=== PATIENT | female | born 1970 | race Caucasian/White ===

== ENCOUNTER 2024-02-24 10:27 | Inpatient (IN) | payer BC, MEDICAID, SELFPAY ==
[2024-02-24 10:29] VITALS: BP 184/108; PULSE 93; RESP 19; TEMP 36.8; O2SAT 100
--- NOTE | 2024-02-24 10:35 | ED.C_ITS ---
<Statement entered by Rom Cheema DO - 02/24/24 16:20> This patient was cared for by YURIY Acosta in the emergency department and reviewed and discussed with the attending psychiatrist for admission. Spoke this emergency department protocol I am countersigned this chart. I did not personally see this patient but was present in real-time during the time that this patient was cared for in the emergency department. HPI - Psych 2 General: Chief Complaint: Psychiatric Symptoms Stated Complaint: 96 Time Seen by Provider: 02/24/24 10:31 Source: police Mode of arrival: EMS Limitations: altered mental status History of Present Illness: Patient is a 54-year-old female presents to ED today via police/EMS on a 96-hour hold due to altered mental status and psychosis. She reportedly has been making suicidal and homicidal threats towards family members and children. Upon arrival no history could be obtained from patient given her psychosis. She is displaying bizarre posturing and body movements. She reports she is going to kill us. MD complaint: altered mental status Onset (ago): unknown History of same: Yes Treatments prior to arrival: placed on mental health hold Related Data Home Medications Medication Instructions Recorded Confirmed No Known Home Medications 02/15/23 02/24/24 Allergies Allergy/AdvReac Type Severity Reaction Status Date / Time No Known Allergies Allergy Verified 02/13/24 08:55 Review of Systems 2 General: Reports: ROS unobtainable due to mental status PFSH ED 2 PFSH: Medical History Psychiatric care Physical Exam 2 Const: EXAM LIMITATIONS: altered mental status GENERAL APPEARANCE: d isheveled, appears older than stated age and other (agitated ) Psych: APPEARANCE: Yes unkempt and Yes disheveled ATTITUDE: Yes agitated ACTIVITY/MOTOR BEHAVIOR: Yes disorganized behavior MOOD & AFFECT: Yes irritable THOUGHT PROCESS: disorganized ATTENTION/CONCENTRATION: Yes attention grossly impaired and Yes concentration grossly impaired M JOSELITO/COGNITION: Yes memory grossly impaired and Yes cognition grossly impaired INSIGHT: Poor insight present (Psych) JUDGEMENT: Poor judgement present (Psych) Course 2 Consultations: Consultation #1: Dr. Marie-accepts to NPU Vital Signs: Vital signs: Vital Signs Temperature 98.3 F 02/24/24 10:29 Pulse Rate 73 02/24/24 11:57 Respiratory Rate 19 H 02/24/24 10:29 Blood Pressure 146/95 02/24/24 11:57 Pulse Oximetry 99 02/24/24 11:57 Oxygen Delivery Me thod Room Air 02/24/24 11:57 MDM - Psych Medical Decision Making Patient is on a 96-hour hold upon arrival to the emergency department. She has been cleared medically. Spoke to Dr. Marie who accepts to NPU. Lab Data 02/24/24 10:58 02/24/24 10:58 Laboratory Results WBC 9.86 10^3/uL (3.29-11.43) 02/24/24 10:58 RBC 4.51 10^6/uL (3.85-5.65) 02/24/24 10:58 Hgb 13.60 g/dL (11.27-16.99) 02/24/24 10:58 Hct 40.3 % (36-47) 02/24/24 10:58 MCV 89.4 fl (85-98) 02/24/24 10:58 MCH 30.2 pg (27-33) 02/24/24 10:58 MCHC 33.7 g/dL (30-55) 02/24/24 10:58 RDW 13.0 % (12.1-15.1) 02/24/24 10:58 Plt Count 326 10^3/cmm (157-399) 02/24/24 10:58 MPV 9.6 fL (7.4-10.4) 02/24/24 10:58 Neut % (Auto) 53.7 % 02/24/24 10:58 Lymph % (Auto) 36.1 % 02/24/24 10:58 [place] % (Auto) 6.4 % 02/24/24 10:58 Eos % (Auto) 2.5 % 02/24/24 10:58 Baso % (Auto) 1.0 % 02/24/24 10:58 Neut # (Auto) 5.29 10^3/uL (1.8-7.7) 02/24/24 10:58 Lymph # (Auto) 3.6 10^3/uL (0.8-4.8) 02/24/24 10:58 [place] # (Auto) 0.6 10^3/uL (0.2-0.9) 02/24/24 10:58 Eos # (Auto) 0.3 10^3/uL (0.0-0.8) 02/24/24 10:58 Baso # (Auto) 0.1 10^3/uL (0.0-0.1) 02/24/24 10:58 Nucleated RBC % (auto) 0 % 02/24/24 10:58 Nucleated RBCs # 0.0 /100WBC 02/24/24 10:58 Sodium 140 mmol/L (136-145) 02/24/24 10:58 Potassium 3.8 mmol/L (3.5-5.1) 02/24/24 10:58 Chloride 104 mmol/L (98-107) 02/24/24 10:58 Carbon Dioxide 23 mmol/L (22-29) 02/24/24 10:58 Anion Gap 16.8 (5-19) 02/24/24 10:58 BUN 15 mg/dL (6-20) 02/24/24 10:58 Creatinine 0.9 mg/dL (0.5-0.9) 02/24/24 10:58 GFR Calculation 65.8 mL/min (90-130) L 02/24/24 10:58 Glucose 98 mg/dL (65-115) 02/24/24 10:58 Calculated Osmolality 291 mOsm/kg (285-295) 02/24/24 10:58 Calcium 9.7 mg/dL (8.5-10.5) 02/24/24 10:58 Total Bilirubin 0.5 mg/dL (0.15-1.2) 02/24/24 10:58 AST 15 U/L (0-32) 02/24/24 10:58 ALT 10 U/L (0-33) 02/24/24 10:58 Alkaline Phosphatase 73 U/L (35-105) 02/24/24 10:58 Total Protein 7.4 g/dL (6.6-8.7) 02/24/24 10:58 Albumin 4.4 g/dL (3.5-5.2) 02/24/24 10:58 Globulin 3.0 g/dL (1.3-4.6) 02/24/24 10:58 Salicylates < 0.3 mg/dL (3-10) L 02/24/24 10:58 Urine Opiates Screen Negative ng/mL (Negative) 02/24/24 10:46 Acetaminophen < 5.0 ug/mL (10-30) L 02/24/24 10:58 Ur Barbiturates Screen Negative ng/mL (Negative) 02/24/24 10:46 Ur Phencyclidine Scrn Negative ng/mL (Negative) 02/24/24 10:46 Ur Amphetamines Screen Negative ng/mL (Negative) 02/24/24 10:46 U Benzodiazepines Scrn Negative ng/mL (Negative) 02/24/24 10:46 Urine Cocaine Screen Negative ng/mL (Negative) 02/24/24 10:46 U Marijuana (THC) Screen Positive ng/mL (Negative) H 02/24/24 10:46 Ethyl Alcohol < 10 mg/dL (0-10) 02/24/24 10:58 No radiology studies performed this visit Discharge Plan Discharge Patient Disposition: Admitted As Inpatient Clinical Impression: Acute psychosis, Homicidal ideations, Involuntary commitment Condition: Stable Prescriptions: No Action No Known Home Medications Coding Level of Care Code ED [employer] for [facility] Last
--- NOTE | 2024-02-24 10:50 | PC.PHAR ---
paTIENT UNABLE TO VERIFY ANY PHARMACY OR MRDICATIONS
[2024-02-24] MEDS: haloperidol inj 5 mg/mL INJ 1 mL IM (11:04)
[2024-02-24 11:12] LABS: Basophils # 0.1 10^3/uL (0.0-0.1); Eosinophils # 0.3 10^3/uL (0.0-0.8); Eosinophils % 2.5 %; Hematocrit 40.3 % (36-47); Lymphocytes # 3.6 10^3/uL (0.8-4.8); Lymphocytes % 36.1 %; Mean Corpuscular HGB Conc 33.7 g/dL (30-55); Mean Corpuscular Hemoglobin 30.2 pg (27-33); Mean Corpuscular Volume 89.4 fl (85-98); Mean Platelet Volume 9.6 fL (7.4-10.4); Monocytes # 0.6 10^3/uL (0.2-0.9); Monocytes % 6.4 %; Neutrophils # 5.29 10^3/uL (1.8-7.7); Neutrophils % 53.7 %; Nucleated Red Blood Cells % 0 %; Platelet Count 326 10^3/cmm (157-399); Red Blood Count 4.51 10^6/uL (3.85-5.65); White Blood Count 9.86 10^3/uL (3.29-11.43)
[2024-02-24 11:38] LABS: Alanine Aminotransferase 10 U/L (0-33); Albumin Level 4.4 g/dL (3.5-5.2); Alkaline Phosphatase 73 U/L (35-105); Anion Gap 16.8 (5-19); Aspartate Amino Transferase 15 U/L (0-32); Blood Urea Nitrogen 15 mg/dL (6-20); Calcium 9.7 mg/dL (8.5-10.5); Carbon Dioxide 23 mmol/L (22-29); Chloride 104 mmol/L (98-107); Creatinine Clr Calc Pharmacy 66.2031; Glomerular Filtration Rate 65.8 mL/min (90-130); Glucose 98 mg/dL (65-115); Osmolality Calculated 291 mOsm/kg (285-295); Potassium 3.8 mmol/L (3.5-5.1); Sodium 140 mmol/L (136-145); Total Bilirubin 0.5 mg/dL (0.15-1.2); Total Protein 7.4 g/dL (6.6-8.7)
[2024-02-24 11:44] LABS: Amphetamines Screen Urine Negative (Negative); Barbiturates Screen Urine Negative (Negative); Benzodiazepines Screen Urine Negative (Negative); Cocaine Screen Urine Negative (Negative); Opiate Screen Urine Negative (Negative); PCP Screen Urine Negative (Negative); THC Screen Urine Positive (Negative)
[2024-02-24 11:45] LABS: Acetaminophen < 5.0 ug/mL (10-30); Alcohol Level < 10 mg/dL (0-10); Salicylate < 0.3 mg/dL (3-10)
[2024-02-24 11:57] VITALS: BP 146/95; PULSE 73; O2SAT 99
[2024-02-24 11:58] VITALS: BP 176/103; PULSE 72; RESP 19; TEMP 36.8; O2SAT 100
[2024-02-24 13:25] VITALS: BP 134/76; PULSE 80; O2SAT 98
[2024-02-24 14:00] VITALS: BP 151/108; PULSE 71; RESP 18; TEMP 37.1; O2SAT 98
--- NOTE | 2024-02-24 15:04 | PC.NURSE ---
ADMIT NOTE PT WAS BROUGHT THE THE EMERGENCY DEPARTMENT AFTER BEING PLACED ON A 96 HOUR HOLD BY [facility]. PT IS REPORTED TO HAVE BEEN HOLDING HER YOUNG GRANDSON AND STATED SOMETHING TO THE EFFECTS OF I COULD KILL YOU RIGHT NOW. PT IS REPORTED TO HAVE MADE THREATS TO SON AND DAUGHTER IN LAW'S LIVES WELL. PT'S SON REPORTS TO [facility] STAFF THAT PT HAS BEEN TALKING TO HERSELF AND LEAVING AT NIGHT AND SOMETIMES COMING HOME WITH BLOOD ON HER WITHOUT WOUNDS HERSELF. UPON ADMIT TO THE NPU PT IS COOPERATIVE. PT IS NOT ORIENTED TO SITUATION AND IS UNSURE OF TIME HOWEVER CAN MANAGE TO FIND THE CORRECT RESPONSE AFTER A FEW ATTEMPTS. PT APPEARS TO BE RESPONDING TO INTERNAL STIMULI BUT DENIES HALLUCINATIONS. WHEN ASKED IF PT HAD A GUARDIAN PT STATED TO THIS NURSE YOU ARE MY GUARDIAN THIS NURSE REORIENTED PT AND PT WAS ABLE TO GIVE RESPONSE THAT SHE DOES NOT HAVE A LEGAL GUARDIAN. PT ALSO APPEARS TO BE DELUSIONAL. PT STATED THAT SHE WAS COLD HOWEVER, WHEN ANOTHER PERSON WAS DRINKING IT MADE HER WARM AGAIN. PT WAS COOPERATIVE WITH ASSESSMENT. PT CURRENT NEEDS ARE MET AT THIS TIME.
[2024-02-24 20:31] VITALS: BP 157/91; PULSE 86; RESP 15; TEMP 37.1; O2SAT 99
[2024-02-25 05:50] VITALS: BP 143/81; PULSE 88; RESP 15; TEMP 36.8; O2SAT 99
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
[2024-02-25 14:00] VITALS: BP 154/114; PULSE 74; RESP 16; TEMP 36.9; O2SAT 99
[2024-02-25 20:20] VITALS: BP 164/113; PULSE 101; RESP 18; TEMP 36.9; O2SAT 98
[2024-02-25 21:34] VITALS: BP 160/127
[2024-02-25] MEDS: amlodipine 5 mg Tablet PO (21:49)
[2024-02-26] VITALS (7 sets, daily range): BP systolic 135–175; BP diastolic 93–118; PULSE 81–89; RESP 16–18; TEMP 36.6–36.7; O2SAT 98–100
[2024-02-26] MEDS: amlodipine 10 mg Tablet PO (09:40)
[2024-02-26] MEDS: cloNIDine 0.1 mg Tablet 0.2 MG PO (14:03)
[2024-02-26] MEDS: nicotine 4 mg lozenge MUCOUS MEM ×3 (14:03→19:37)
--- NOTE | 2024-02-26 15:12 | PC.NURSE ---
PT BLOOD PRESSURE WAS 175/109. THIS NURSE SPOKE WITH PHYSICIAN WHO ORDERED TO GIVE 0.2MG CLONIDINE A ONE TIME DOSE. THIS NURSE PLACED ORDER AND ADMINISTERED MEDICATION AT 1349. THIS NURSE RE-ASSESSED PT BLOOD PRESSURE AT 1510 AND RECEIVED A READING OF 166/118. THIS NURSE NOTIFIED PHYSICIAN OF NEW ELEVATED BLOOD PRESSURE RESULTS AND PHYSICIAN TO CALL IN A MED CONSULT. PT STATED TO THIS NURSE DURING RE-ASSESSMENT MY HEART BEATS WITH YOURS WHEN YOU ARE AROUND SO THAT IS PROBABLY WHY IT IS LIKE THAT. PT OTHER NEEDS ARE MET AT THIS TIME.
--- NOTE | 2024-02-26 17:15 | P.CONIM_ITS ---
Providers/Reason For Consult 2 Consulting Physician/Specialty*: Hospitalist Reason for Consult*: Hypertension Attending Physician: Rivera Marie MD History of Present Illness History of Present Illness Maribell Epps is a 54 year old female who was admitted through the emergency department due to acute psychosis and homicidal ideations. She has a history of drug abuse with cocaine and marijuana. The patient has been in the Neuropsych Unit and being treated for acute psychosis. While in the NPU, her blood pressure has been elevated and gotten as high as 175/109. She was started on amlodipine and is currently on 10 mg daily. She was also given a one-time dose of clonidine 0.2 mg which has not helped sufficiently. Because of this the medicine team was consulted for further evaluation. The patient denies any history of hypertension, however does note that sometimes she has a pounding headache and will get nauseous with this and be able to feel her pulse in her neck and be able to see the pulsations with her eyes. Review of Systems 2 Narrative: General: Denies fevers, chills, fatigue, malaise. Ears/Nose/Throat: Denies nasal congestion, sore throat. Cardiovascular: Denies chest pains, peripheral edema. Respiratory: Denies cough, wheezing. Gastrointestinal: Denies diarrhea, constipation, abdominal pain. Skin: Denies rash. Medications/Allergies Home Medications Medication Instructions Recorded Confirmed Last Taken Type No Known Home Medications 02/15/23 02/24/24 Unknown History Allergies Allergy/AdvReac Type Severity Reaction Status Date / Time No Known Allergies Allergy Verified 02/13/24 08:55 Current Medications Generic Name Dose Route Start Last Admin Trade Name Freq PRN Reason Stop Dose Admin Amlodipine Besylate 10 mg 02/26/24 09:00 02/26/24 09:40 Amlodipine 10 Mg Tablet PO 10 mg DAILY JYOTI Administration Nicotine Polacrilex 4 mg 02/26/24 13:37 02/26/24 16:58 Nicotine 4 Mg Lozenge MUCOUS MEM 4 mg Q2H PRN Administration NICOTINE CRAVINGS PFSH Acute 2 PFSH: Medical History Psychiatric care Vitals/I&O/Wt Last Vital Signs Temp 98.1 F 02/26/24 13:56 Pulse 81 02/26/24 13:56 Resp 18 02/26/24 13:56 BP 166/118 02/26/24 15:12 Pulse Ox 99 02/26/24 13:56 O2 Del Method Room Air 02/26/24 06:00 Weight last 48 hrs Weight 108 lb 6 oz Physical Exam 2 Narrative: General: Alert and oriented x 3. In no acute distress. Eyes: PERRLA, EOM intact, no discharge. Mouth: No erythema or tonsilar enlargement. No masses noted. Neck: No thyromegaly. No lymphadenopathy. Heart: Regular rate and rhythm. No murmurs. Lungs: Clear to auscultation bilaterally. No wheezes, crackles or ronchi. Extremities: No pitting edema. Psych: Pleasant, interactive. Data 02/24/24 10:58 02/24/24 10:58 A&P Assessment and plan (1) Hypertension: The patient's blood pressure is currently 166/118. She is currently on amlodipine 10 mg daily. Clonidine 0.2 mg did not seem to help bring her blood pressure down sufficiently. We will start her on losartan 25 mg once daily and write a prescription for hydralazine to be used on an as-needed basis. The dose of losartan may need to be increased depending on her course. We appreciate the consultation. (2) Acute psychosis: Further recommendations and treatment for acute psychosis will be managed by the psychiatric team. (3) Cannabis use disorder: (4) Homicidal ideations: Coding Level of Care Code Acute Code for [facility] Diagnoses Hypertension I10 Acute psychosis F23 Cannabis use disorder F12.90 Homicidal ideations R45.850
--- NOTE | 2024-02-26 19:35 | P.NPUPN_ITS ---
Subjective NPU 2 Subjective: Patient is a 54-year-old female admitted with psychosis and alleged homicidal ideation currently involuntarily placed on the neuropsychiatric unit. He had stated that she had not made any threats to hurting her family. She stated that she had used marijuana that may have been contaminated with another substance. She had reported that her family had felt threatened by her and reported that she had in the past been attempting to get some help here in [place] with outpatient services. She had in the past described having been influenced by specific thoughts and beliefs with reports of past paranoia. She had endorsed no auditory or visual hallucinations today. She had reported that she had been more confused. She reported that her homelessness recently had been brief. She states that her mother and her son had been concerned about her but was not able to elaborate further. Mental Status Exam 2 MSE Comments: This is an underweight white female looking older than her stated age in hospital scrubs with limited grooming and eye contact.? No abnormal movements except for psychomotor retardation.? She was cooperative with exam in mild to moderate distress.? Speech was decreased in rate and normal in volume. Mood described as better. Her affect was incongruent and subdued. Thought process linear, thought content: Patient denied suicidal or homicidal ideation, there were no delusions reported or noted, she denied auditory or visual hallucinations. ?There was an overall poverty of content and some paranoia present. Attention and concentration were intact and memory appeared mostly reliable, but none were formally tested.? She is alert and oriented x person and place.? Insight and judgment limited, impulse control is limited versus impaired.? Vitals/I&O/Wt Last Vital Signs Temp 98.1 F 02/26/24 13:56 Pulse 81 02/26/24 13:56 Resp 18 02/26/24 13:56 BP 166/118 02/26/24 15:12 Pulse Ox 99 02/26/24 13:56 O2 Del Method Room Air 02/26/24 06:00 Weight last 48 hrs Weight 49.158 kg Data NPU 02/24/24 10:58 02/24/24 10:58 A&P Assessment and plan (1) Hypertension: (2) Acute psychosis: Further recommendations and treatment for acute psychosis will be managed by the psychiatric team. (3) Cannabis use disorder: (4) Homicidal ideations: (5) Involuntary commitment: Plan This is a 54-year-old white female denying any mental health history history but reporting some past addiction and some current cannabis use who presented on a 96-hour hold. The patient presented with increased anxiety and anger following the use of pre-rolled joints. The patient's family reported a change in behavior, including yelling and threats, which led to hospitalization. The patient has a history of tobacco and cannabis use and past cocaine use. 1. Trial of zyprexa 5mg at night. 2. Continue every 15 minute checks for safety. 3. Encourage individual, group and milieu therapies. 4. Obtain collateral information. 5. Encourage sober living treatment after discharge at the highest level of care to which he is willing to commit. 6. Evaluate safety against the backdrop of the 96-hour hold. Involuntary Hold Information 2 96 Hour Hold: 96 Hour Involuntary Admission: Yes 96 Hour Hold Ending Date: 03/01/24 96 Hour Hold Ending Time: 11:50 Attestations NPU 2 Medical Necessity Statement*: Inpatient hospitalization is medically necessary and the clinically appropriate intervention at this time. We will monitor medications and make changes as indicated. Patient will be in the hospital for over two midnights. The patient's likely length of stay is 3-5 days. Coding Level of Care Code Acute Code for [facility] Fwd Diagnoses Hypertension I10 Acute psychosis F23 Cannabis use disorder F12.90 Homicidal ideations R45.850 Involuntary commitment Z04.6
[2024-02-26] MEDS: losartan 50 mg Tablet 25 MG PO (20:18)
[2024-02-26] MEDS: OLANZapine 5 mg TABLET PO (20:19)
[2024-02-27] VITALS (8 sets, daily range): BP systolic 119–163; BP diastolic 79–109; PULSE 71–109; RESP 16–18; TEMP 36.4–36.8; O2SAT 96–100
[2024-02-27] MEDS: nicotine 4 mg lozenge MUCOUS MEM ×7 (05:59→20:06)
[2024-02-27] MEDS: amlodipine 10 mg Tablet PO (08:22)
[2024-02-27] MEDS: losartan 50 mg Tablet 25 MG PO ×2 (08:22→20:06)
[2024-02-27 09:47] LABS: Albumin Level 4.6 g/dL (3.5-5.2); Alkaline Phosphatase 72 U/L (35-105); Blood Urea Nitrogen 19 mg/dL (6-20); Calcium 9.7 mg/dL (8.5-10.5); Carbon Dioxide 26 mmol/L (22-29); Chloride 105 mmol/L (98-107); Cortisol Random 13.66 ug/dL (2.47-19.5); Creatinine Clr Calc Pharmacy 72.9567; Glomerular Filtration Rate 87.9 mL/min (90-130); Glucose 90 mg/dL (65-115); Osmolality Calculated 292 mOsm/kg (285-295); Sodium 140 mmol/L (136-145); Total Bilirubin 0.4 mg/dL (0.15-1.2); Total Protein 7.6 g/dL (6.6-8.7)
[2024-02-27 10:01] LABS: Alanine Aminotransferase 8 U/L (0-33); Aspartate Amino Transferase 18 U/L (0-32)
--- NOTE | 2024-02-27 13:20 | P.PN_ITS ---
Subjective 2 Subjective: No acute overnight events noted. She is still hypertensive with systolic blood pressure in high 140s to 150s. Medications: Reviewed: Yes Vitals/I&O/Wt Last Vital Signs Temp 97.9 F 02/27/24 11:59 Pulse 77 02/27/24 11:59 Resp 18 02/27/24 11:59 BP 161/105 02/27/24 11:59 Pulse Ox 96 02/27/24 11:59 O2 Del Method Room Air 02/27/24 03:58 Weight last 48 hrs Weight 49.158 kg Physical Exam 2 Narrative: General: Alert and oriented x 3. In no acute distress. Eyes: PERRLA, EOM intact, no discharge. Mouth: No erythema or tonsilar enlargement. No masses noted. Neck: No thyromegaly. No lymphadenopathy. Heart: Regular rate and rhythm. No murmurs. Lungs: Clear to auscultation bilaterally. No wheezes, crackles or ronchi. Extremities: No pitting edema. Psych: Pleasant, interactive. Data 02/24/24 10:58 02/27/24 08:36 A&P Assessment and plan (1) Hypertension: The patient's blood pressure is currently 161/105. She is currently on amlodipine 10 mg daily. Will do losartan 25 mg at bedtime P.o. hydralazine 25 mg twice daily Will monitor for now (2) Acute psychosis: Further recommendations and treatment for acute psychosis will be managed by the psychiatric team. (3) Cannabis use disorder: (4) Homicidal ideations: Attestations 2 Medical Necessity Statement*: She is needing continued hospitalization for management of psychiatric disorder and also being managed by medical team for uncontrolled hypertension Time Spent in Patient Care: 10 minutes Coding Level of Care Code Acute Code for [facility] Fwd Diagnoses Hypertension I10 Acute psychosis F23 Cannabis use disorder F12.90 Homicidal ideations R45.850 Time Spent (min) 10
[2024-02-27 14:57] LABS: Basophils # 0.1 10^3/uL (0.0-0.1); Eosinophils # 0.4 10^3/uL (0.0-0.8); Eosinophils % 2.7 %; Hematocrit 40.4 % (36-47); Lymphocytes # 3.9 10^3/uL (0.8-4.8); Lymphocytes % 28.6 %; Mean Corpuscular HGB Conc 33.7 g/dL (30-55); Mean Corpuscular Hemoglobin 30.8 pg (27-33); Mean Corpuscular Volume 91.6 fl (85-98); Mean Platelet Volume 9.7 fL (7.4-10.4); Monocytes # 0.7 10^3/uL (0.2-0.9); Monocytes % 5.1 %; Neutrophils # 8.47 10^3/uL (1.8-7.7); Neutrophils % 62.2 %; Nucleated Red Blood Cells % 0 %; Platelet Count 308 10^3/cmm (157-399); Red Blood Count 4.41 10^6/uL (3.85-5.65); Red Cell Distribution Width 12.9 % (12.1-15.1)
[2024-02-27] MEDS: hyDRALAzine 25 mg Tablet PO (17:40)
--- NOTE | 2024-02-27 18:51 | P.NPUPN_ITS ---
Subjective NPU 2 Subjective: Patient is a 54-year-old female admitted with psychosis and alleged homicidal ideation currently involuntarily placed on the neuropsychiatric unit. She reports that she often could hear God inside her head. She had stated that she felt at times influenced and stated that she had had the special abilities for several years. She had stated that she had periods of time where she had not slept for several days and had felt that her thoughts were moving fast. She reported feeling at times that others were trying to put specific beliefs inside of her. She had acknowledged having her different voices and stated that this was not related in the past to the use of substances although she had stated that she may have had her marijuana spiked with a hallucinogen. Patient reports hearing the voice and hearing the heartbeat of god. Mental Status Exam 2 MSE Comments: This is an underweight white female looking older than her stated age in hospital scrubs with limited grooming and eye contact.? No abnormal movements except for psychomotor retardation.? She was cooperative with exam in mild to moderate distress.? Speech was more productive in speech and normal in rate. Mood described as great. Her affect was euphoric. Thought process linear, thought content: Patient denied suicidal or homicidal ideation, there was evidence of grandiosity, ideas of special abilities and infinite insight. Attention and concentration were intact and memory appeared mostly reliable, but none were formally tested.? She is alert and oriented x person and place.? Insight and judgment limited, impulse control is limited versus impaired.? Vitals/I&O/Wt Last Vital Signs Temp 98.3 F 02/27/24 16:00 Pulse 81 02/27/24 16:00 Resp 18 02/27/24 16:00 BP 163/109 02/27/24 16:00 Pulse Ox 100 02/27/24 16:00 O2 Del Method Room Air 02/27/24 16:00 Weight last 48 hrs Weight 49.158 kg Data NPU 02/27/24 14:50 02/27/24 08:36 A&P Assessment and plan (1) Acute psychosis: (2) Hypertension: (3) Cannabis use disorder: (4) Homicidal ideations: (5) Involuntary commitment: Plan This is a 54-year-old white female denying any mental health history history but reporting some past addiction and some current cannabis use who presented on a 96-hour hold. The patient presented with increased anxiety and anger following the use of pre-rolled joints. The patient's family reported a change in behavior, including yelling and threats, which led to hospitalization. The patient has a history of tobacco and cannabis use and past cocaine use. 1. Increase zyprexa to 10mg at night. 2. Continue every 15 minute checks for safety. 3. Encourage individual, group and milieu therapies. 4. Obtain collateral information. 5. Encourage sober living treatment after discharge at the highest level of care to which he is willing to commit. 6. Evaluate safety against the backdrop of the 96-hour hold. Involuntary Hold Information 2 96 Hour Hold: 96 Hour Involuntary Admission: Yes 96 Hour Hold Ending Date: 03/01/24 96 Hour Hold Ending Time: 11:50 Attestations NPU 2 Medical Necessity Statement*: Inpatient hospitalization is medically necessary and the clinically appropriate intervention at this time. We will monitor medications and make changes as indicated. Patient will be in the hospital for over two midnights. The patient's likely length of stay is 3-5 days. Coding Level of Care Code Acute Code for [facility] Fwd Diagnoses Acute psychosis F23 Hypertension I10 Cannabis use disorder F12.90 Homicidal ideations R45.850 Involuntary commitment Z04.6
[2024-02-27] MEDS: trazodone 50 mg Tablet PO (20:06)
[2024-02-27] MEDS: OLANZapine 5 mg TABLET 10 MG PO (20:06)
[2024-02-28] VITALS (8 sets, daily range): BP systolic 94–156; BP diastolic 64–111; PULSE 65–98; RESP 16–20; TEMP 36.6–37.2; O2SAT 98–100
[2024-02-28] MEDS: nicotine 4 mg lozenge MUCOUS MEM ×7 (07:24→20:48)
[2024-02-28] MEDS: hyDRALAzine 25 mg Tablet PO (08:52)
[2024-02-28] MEDS: amlodipine 10 mg Tablet PO (08:52)
--- NOTE | 2024-02-28 17:27 | P.NPUPN_ITS ---
Subjective NPU 2 Subjective: Patient is a 54-year-old female admitted with psychosis and alleged homicidal ideation currently involuntarily placed on the neuropsychiatric unit. The patient had reported some difficulties with falling asleep. She had continued to express unusual thoughts and reported that she had some special insight and ideas regarding God. She had been more pleasant on the unit. She was redirectable. She had described the mortgage loan underwriter of this note is being blast and reported hearing God's voice through the vibration of the air. She had minimized any depression. She had reported that she had spoken with family members but was unable to elaborate in any way what the discussion was about. She was unable to describe the details of what had brought her into the hospital. She had admitted that she had been having some disturbance in sleep at the time. Mental Status Exam 2 MSE Comments: This is an underweight white female looking older than her stated age in hospital scrubs with limited grooming and eye contact.? No abnormal involuntary motor movements today. She did appear to be pacing her room. She was cooperative with exam in mild distress.? Speech was more productive in speech and normal in rate. Mood described as great. Her affect was euphoric and expansive. Thought process linear, thought content: Patient denied suicidal or homicidal ideation, there was evidence of grandiosity, ideas of special abilities and infinite insight. Attention and concentration were intact and memory appeared mostly reliable, but none were formally tested.? She is alert and oriented x person and place.? Insight and judgment limited, impulse control is limited versus impaired.? Vitals/I&O/Wt Last Vital Signs Temp 99 F 02/28/24 16:00 Pulse 94 02/28/24 16:00 Resp 18 02/28/24 16:00 BP 138/98 02/28/24 16:00 Pulse Ox 100 02/28/24 16:00 O2 Del Method Room Air 02/27/24 16:00 Data NPU 02/27/24 14:50 02/27/24 08:36 A&P Assessment and plan (1) Acute psychosis: (2) Bipolar affective, manic, unspec: (3) Hypertension: (4) Cannabis use disorder: (5) Homicidal ideations: (6) Involuntary commitment: Plan This is a 54-year-old white female denying any mental health history history but reporting some past addiction and some current cannabis use who presented on a 96-hour hold. The patient presented with increased anxiety and anger following the use of pre-rolled joints. The patient's family reported a change in behavior, including yelling and threats, which led to hospitalization. The patient has a history of tobacco and cannabis use and past cocaine use. 1. Increase zyprexa to 15mg at night. 2. Continue every 15 minute checks for safety. 3. Encourage individual, group and milieu therapies. 4. Obtain collateral information. 5. Encourage sober living treatment after discharge at the highest level of care to which he is willing to commit. 6. Evaluate safety against the backdrop of the 96-hour hold. Involuntary Hold Information 2 96 Hour Hold: 96 Hour Involuntary Admission: Yes 96 Hour Hold Ending Date: 03/01/24 96 Hour Hold Ending Time: 11:50 Attestations NPU 2 Medical Necessity Statement*: Inpatient hospitalization is medically necessary and the clinically appropriate intervention at this time. We will monitor medications and make changes as indicated. The patient's likely length of stay is 3-5 days. Coding Level of Care Code Acute Code for [facility] Fwd Diagnoses Acute psychosis F23 Bipolar affective, manic, unspec F31.10 Hypertension I10 Cannabis use disorder F12.90 Homicidal ideations R45.850 Involuntary commitment Z04.6
[2024-02-28] MEDS: OLANZapine 5 mg TABLET 15 MG PO (20:47)
[2024-02-28] MEDS: losartan 50 mg Tablet 25 MG PO (20:47)
[2024-02-29 04:00] VITALS: BP 114/74; PULSE 89; RESP 16; TEMP 36.7; O2SAT 100
[2024-02-29] MEDS: nicotine 4 mg lozenge MUCOUS MEM ×7 (05:30→20:42)
[2024-02-29 07:45] VITALS: BP 141/94; PULSE 68; RESP 18; TEMP 36.4; O2SAT 97
[2024-02-29] MEDS: amlodipine 10 mg Tablet PO (08:42)
[2024-02-29] MEDS: hyDRALAzine 25 mg Tablet PO (08:42)
[2024-02-29 11:54] VITALS: BP 126/92; PULSE 112; RESP 18; TEMP 37.2; O2SAT 100
[2024-02-29 16:00] VITALS: BP 133/84; PULSE 92; RESP 18; TEMP 36.6; O2SAT 100
--- NOTE | 2024-02-29 17:19 | P.NPUPN_ITS ---
Subjective NPU 2 Subjective: Patient is a 54-year-old female admitted with psychosis and alleged homicidal ideation currently involuntarily placed on the neuropsychiatric unit. Patient did not endorse any suicidal or homicidal ideation. She was redirectable on the unit. She continued to have odd ideas and appeared preoccupied by hearing God through the air and around her. She stated that she felt that a book that was given to her by another patient was purple and the purple writing somehow was a direct signal for her. She had stated that she had spoken with family members and reported that she was hopeful to return home. She had reported some improved sleep. She reports that she could see the mortgage underwriter's heartbeat. Mental Status Exam 2 MSE Comments: This is an underweight white female looking older than her stated age in hospital scrubs with limited grooming and eye contact.? No abnormal involuntary motor movements today. She did appear to be pacing her room again. She was cooperative with exam in mild distress.? Speech was more productive in speech and normal in rate. Mood described as great. Her affect was euphoric and expansive. Thought process linear, thought content: Patient denied suicidal or homicidal ideation, there was evidence of grandiosity, ideas of special abilities and infinite insight and odd ideas of reference. Attention and concentration were intact and memory appeared mostly reliable, but none were formally tested.? She is alert and oriented x person and place.? Insight and judgment limited, impulse control is limited versus impaired.? Vitals/I&O/Wt Last Vital Signs Temp 98 F 02/29/24 16:00 Pulse 92 02/29/24 16:00 Resp 18 02/29/24 16:00 BP 133/84 02/29/24 16:00 Pulse Ox 100 02/29/24 16:00 O2 Del Method Room Air 02/27/24 16:00 Data NPU 02/27/24 14:50 02/27/24 08:36 A&P Assessment and plan (1) Acute psychosis: (2) Bipolar affective, manic, unspec: (3) Hypertension: (4) Cannabis use disorder: (5) Homicidal ideations: (6) Involuntary commitment: Plan This is a 54-year-old white female denying any mental health history history but reporting some past addiction and some current cannabis use who presented on a 96-hour hold. The patient presented with increased anxiety and anger following the use of pre-rolled joints. The patient's family reported a change in behavior, including yelling and threats, which led to hospitalization. The patient has a history of tobacco and cannabis use and past cocaine use. 1. Continue zyprexa at 15mg at night. Improvement noted but still ideas of reference and unusual beliefs and perceptions suggest continued psychosis. 2. Continue every 15 minute checks for safety. 3. Encourage individual, group and milieu therapies. 4. Obtain collateral information. 5. Encourage sober living treatment after discharge at the highest level of care to which he is willing to commit. 6. Evaluate safety against the backdrop of the 96-hour hold. Involuntary Hold Information 2 96 Hour Hold: 96 Hour Involuntary Admission: Yes 96 Hour Hold Ending Date: 03/01/24 96 Hour Hold Ending Time: 11:50 Attestations NPU 2 Medical Necessity Statement*: Inpatient hospitalization is medically necessary and the clinically appropriate intervention at this time. We will monitor medications and make changes as indicated. The patient's likely length of stay is 3-5 days. Coding Level of Care Code Acute Code for [facility] Fwd Diagnoses Acute psychosis F23 Bipolar affective, manic, unspec F31.10 Hypertension I10 Cannabis use disorder F12.90 Homicidal ideations R45.850 Involuntary commitment Z04.6
[2024-02-29 20:00] VITALS: BP 120/91; PULSE 100; RESP 18; TEMP 36.8; O2SAT 93
[2024-02-29 20:40] VITALS: BP 120/91
[2024-02-29] MEDS: OLANZapine 5 mg TABLET 15 MG PO (20:40)
[2024-02-29] MEDS: losartan 50 mg Tablet 25 MG PO (20:40)
[2024-02-29] MEDS: trazodone 50 mg Tablet PO (20:40)
[2024-03-01] VITALS (7 sets, daily range): BP systolic 91–136; BP diastolic 62–96; PULSE 88–118; RESP 15–20; TEMP 36.5–37.2; O2SAT 97–100
[2024-03-01] MEDS: nicotine 4 mg lozenge MUCOUS MEM ×6 (05:19→20:27)
[2024-03-01] MEDS: hyDRALAzine 25 mg Tablet PO (08:22)
[2024-03-01] MEDS: amlodipine 10 mg Tablet PO (08:22)
--- NOTE | 2024-03-01 17:31 | P.NPUPN_ITS ---
Subjective NPU 2 Subjective: Patient is a 54-year-old female admitted with psychosis and alleged homicidal ideation currently involuntarily placed on the neuropsychiatric unit. The patient continued to engage in conversations with herself alone in her room. She had reported that her heart and other staff members hearts were somehow intimately connected. There was no episodes of agitation. She had engaged in appropriate self-care. She had been redirectable. Patient had not made any overt threats towards herself or others. She had again reported that she had felt that everything was wonderful here . She had slept throughout the night and remained compliant with her medicine at this time. She had described sql report writer as a god. Mental Status Exam 2 MSE Comments: This is an underweight white female looking older than her stated age in hospital scrubs with limited grooming and eye contact.? No abnormal involuntary motor movements today. She was cooperative with exam in mild distress.? Speech was more productive in speech and normal in rate. Mood described as wonderful. Her affect was excessively euphoric. Thought process was linear. Thought content: Patient denied suicidal or homicidal ideation, there was evidence of grandiosity, ideas of special abilities and infinite insight and odd ideas of reference. Attention and concentration were intact and memory appeared mostly reliable, but none were formally tested.? She is alert and oriented x person and place.? Insight and judgment limited, impulse control is limited versus impaired.? Vitals/I&O/Wt Last Vital Signs Temp 98.8 F 03/01/24 15:26 Pulse 112 H 03/01/24 15:26 Resp 18 03/01/24 15:26 BP 118/79 03/01/24 15:26 Pulse Ox 100 03/01/24 15:26 O2 Del Method Room Air 02/27/24 16:00 Data NPU 02/27/24 14:50 02/27/24 08:36 A&P Assessment and plan (1) Acute psychosis: (2) Bipolar affective, manic, unspec: (3) Hypertension: (4) Cannabis use disorder: (5) Homicidal ideations: (6) Involuntary commitment: Plan This is a 54-year-old white female denying any mental health history history but reporting some past addiction and some current cannabis use who presented on a 96-hour hold. The patient presented with increased anxiety and anger following the use of pre-rolled joints. The patient's family reported a change in behavior, including yelling and threats, which led to hospitalization. The patient has a history of tobacco and cannabis use and past cocaine use. 1. Continue zyprexa at 15mg at night. Improvement noted but still ideas of reference and unusual beliefs and perceptions suggest continued psychosis. 2. Continue every 15 minute checks for safety. 3. Encourage individual, group and milieu therapies. 4. Obtain collateral information. 5. Encourage sober living treatment after discharge at the highest level of care to which he is willing to commit. 6. Court hearing filed for 21 day hold. Involuntary Hold Information 2 96 Hour Hold: 96 Hour Involuntary Admission: Yes 96 Hour Hold Ending Date: 03/01/24 96 Hour Hold Ending Time: 11:50 Attestations NPU 2 Medical Necessity Statement*: Inpatient hospitalization is medically necessary and the clinically appropriate intervention at this time. We will monitor medications and make changes as indicated. The patient's likely length of stay is 3-5 days. Coding Level of Care Code Acute Code for [facility] Diagnoses Acute psychosis F23 Bipolar affective, manic, unspec F31.10 Hypertension I10 Cannabis use disorder F12.90 Homicidal ideations R45.850 Involuntary commitment Z04.6
[2024-03-01 17:53] LABS: Bilirubin Urine Negative (Negative); Blood Urine Negative (Negative); Glucose Urine UA Negative (Normal); Ketones Urine Negative (Negative); Leukocyte Esterase Urine Negative (Negative); Nitrate Urine Negative (Negative); Protein Urine Negative (Negative); Specific Gravity, Urine 1.007 (1.005-1.030); Urine Appearance Clear (CLEAR); Urine Color Yellow (Yellow); Urobilinogen Urine 0.2 mg/dL (Negative)
[2024-03-01 17:58] LABS: Add Urine Microscopic? YES; Bacteria Urine None Seen /hpf; Hyaline Casts Urine 0-4 /lpf; RBC Urine 0-2 /hpf (0-2); Squamous Epithelial Cell Urine 0-5 /hpf (0-5); WBC Urine 0-5 /hpf (0-5)
[2024-03-01] MEDS: OLANZapine 5 mg TABLET 15 MG PO (20:15)
[2024-03-01] MEDS: losartan 50 mg Tablet 25 MG PO (20:16)
[2024-03-01] MEDS: trazodone 50 mg Tablet PO (20:26)
[2024-03-02] VITALS (7 sets, daily range): BP systolic 113–148; BP diastolic 70–89; PULSE 80–110; RESP 15–16; TEMP 36.4–36.9; O2SAT 96–100
[2024-03-02] MEDS: nicotine 4 mg lozenge MUCOUS MEM ×6 (05:18→20:32)
--- NOTE | 2024-03-02 08:12 | PC.NURSE ---
Patient responding to internal stimuli, appearing to be interacting with someone/something that is not there. When this RN was doing her assessment she stated that her room being cold was keeping her holy. Patient very positive and friendly this morning.
[2024-03-02] MEDS: amlodipine 10 mg Tablet PO (08:44)
[2024-03-02] MEDS: hyDRALAzine 25 mg Tablet PO (08:44)
--- NOTE | 2024-03-02 13:30 | P.NPUPN_ITS ---
Subjective NPU 2 Subjective: Patient is a 54-year-old female admitted with psychosis and alleged homicidal ideation currently involuntarily placed on the neuropsychiatric unit. The patient had continued to appear grandiose and continue to appear compliant on the unit stating that God was somehow guiding her and stated to several different staff members that they were God's. She had remained compliant with her medications. She had been agreeable to continuing to stay on a 21-day hold. She had minimized any side effects from her medication regimen. There was no acts of aggression noted here. She had reported improved sleep. She had not required any as needed medications on the unit yet over the last 24 hours. Mental Status Exam 2 MSE Comments: This is an underweight white female looking older than her stated age in hospital scrubs with limited grooming and eye contact.? No abnormal involuntary motor movements today. She was cooperative with exam in mild distress.? Speech was more productive in speech and normal in rate. Mood described as great . Her affect was excessively euphoric. Thought process was linear but expansive. Thought content: Patient denied suicidal or homicidal ideation, there was evidence of grandiosity, ideas of special abilities and infinite abilities and odd ideas of reference. Attention and concentration were intact and memory appeared mostly reliable, but none were formally tested.? She is alert and oriented x person and place.? Insight and judgment limited, impulse control is limited versus impaired.? Vitals/I&O/Wt Last Vital Signs Temp 98.2 F 03/02/24 11:46 Pulse 110 H 03/02/24 11:46 Resp 16 03/02/24 11:46 BP 119/78 03/02/24 11:46 Pulse Ox 96 03/02/24 11:46 O2 Del Method Room Air 03/02/24 11:46 Data NPU 02/27/24 14:50 02/27/24 08:36 A&P Assessment and plan (1) Acute psychosis: (2) Bipolar affective, manic, unspec: (3) Hypertension: (4) Cannabis use disorder: (5) Homicidal ideations: (6) Involuntary commitment: Plan This is a 54-year-old white female denying any mental health history history but reporting some past addiction and some current cannabis use who presented on a 96-hour hold. The patient presented with increased anxiety and anger following the use of pre-rolled joints. The patient's family reported a change in behavior, including yelling and threats, which led to hospitalization. The patient has a history of tobacco and cannabis use and past cocaine use. 1. Continue zyprexa at 15mg at night. Improvement noted but still ideas of reference and unusual beliefs and perceptions suggest continued psychosis. Monitor daily weights. 2. Continue every 15 minute checks for safety. 3. Encourage individual, group and milieu therapies. 4. Obtain collateral information. 5. Encourage sober living treatment after discharge at the highest level of care to which he is willing to commit. 6. Court hearing filed for 21 day hold. Involuntary Hold Information 2 96 Hour Hold: 96 Hour Involuntary Admission: Yes 96 Hour Hold Ending Date: 03/01/24 96 Hour Hold Ending Time: 11:50 Attestations NPU 2 Medical Necessity Statement*: Inpatient hospitalization is medically necessary and the clinically appropriate intervention at this time. We will monitor medications and make changes as indicated. The patient's likely length of stay is 5-7 days. Coding Level of Care Code Acute Code for [facility] Diagnoses Acute psychosis F23 Bipolar affective, manic, unspec F31.10 Hypertension I10 Cannabis use disorder F12.90 Homicidal ideations R45.850 Involuntary commitment Z04.6
[2024-03-02] MEDS: OLANZapine 5 mg TABLET 15 MG PO (20:20)
[2024-03-02] MEDS: losartan 50 mg Tablet 25 MG PO (20:20)
[2024-03-02] MEDS: trazodone 50 mg Tablet PO (20:21)
[2024-03-03] VITALS (7 sets, daily range): BP systolic 104–144; BP diastolic 72–91; PULSE 76–110; RESP 15–20; TEMP 36.6–36.9; O2SAT 94–100
[2024-03-03] MEDS: nicotine 4 mg lozenge MUCOUS MEM ×6 (06:03→20:46)
[2024-03-03] MEDS: acetaminophen 325 mg Tablet 650 MG PO ×2 (07:59→15:51)
[2024-03-03] MEDS: amlodipine 10 mg Tablet PO (07:59)
[2024-03-03] MEDS: hyDRALAzine 25 mg Tablet PO (07:59)
[2024-03-03] MEDS: ibuprofen 600 mg Tablet PO ×2 (10:09→20:42)
[2024-03-03] MEDS: nicotine 2 mg Gum BUCCAL (11:35)
--- NOTE | 2024-03-03 11:51 | P.NPUPN_ITS ---
Subjective NPU 2 Subjective: Patient is a 54-year-old female admitted with psychosis and alleged homicidal ideation currently involuntarily placed on the neuropsychiatric unit. Patient reported no side effects from her medications. She had continued to appear at times excessively euphoric. She was redirectable and pleasant. She had continued to report having enhanced abilities stating that she could hear God through the air molecules. She had reported adequate sleep. She had minimized any depression at this time. She had denied having any racing thoughts. Mental Status Exam 2 MSE Comments: This is an underweight white female looking older than her stated age in hospital scrubs with limited grooming and eye contact.? No abnormal involuntary motor movements today. She was cooperative with exam in mild distress.? Speech was more productive in speech and normal in rate. Mood described as fabulous . Her affect was euphoric. Thought process was linear but expansive. Thought content: Patient denied suicidal or homicidal ideation, there was evidence of grandiosity, ideas of special abilities and belief that people working here were gods. Attention and concentration were intact and memory appeared mostly reliable, but none were formally tested.? She is alert and oriented x person and place.? Insight and judgment limited, impulse control is limited versus impaired.? Vitals/I&O/Wt Last Vital Signs Temp 98.4 F 03/03/24 11:06 Pulse 76 03/03/24 11:06 Resp 16 03/03/24 11:06 BP 104/74 03/03/24 11:06 Pulse Ox 98 03/03/24 11:06 O2 Del Method Room Air 03/03/24 11:06 Data NPU 02/27/24 14:50 02/27/24 08:36 A&P Assessment and plan (1) Acute psychosis: (2) Bipolar affective, manic, unspec: (3) Hypertension: (4) Cannabis use disorder: (5) Homicidal ideations: (6) Involuntary commitment: Plan This is a 54-year-old white female denying any mental health history history but reporting some past addiction and some current cannabis use who presented on a 96-hour hold. The patient presented with increased anxiety and anger following the use of pre-rolled joints. The patient's family reported a change in behavior, including yelling and threats, which led to hospitalization. The patient has a history of tobacco and cannabis use and past cocaine use. 1. Continue zyprexa at 15mg at night. She still appears delusional and grandiose. 2. Continue every 15 minute checks for safety. 3. Encourage individual, group and milieu therapies. 4. Obtain collateral information. 5. Encourage sober living treatment after discharge at the highest level of care to which he is willing to commit. 6. Court hearing filed for 21 day hold. Involuntary Hold Information 2 96 Hour Hold: 96 Hour Involuntary Admission: Yes 96 Hour Hold Ending Date: 03/01/24 96 Hour Hold Ending Time: 11:50 Attestations NPU 2 Medical Necessity Statement*: Inpatient hospitalization is medically necessary and the clinically appropriate intervention at this time. We will monitor medications and make changes as indicated. The patient's likely length of stay is 5-7 days. Coding Level of Care Code Acute Code for g [facility]wd Diagnoses Acute psychosis F23 Bipolar affective, manic, unspec F31.10 Hypertension I10 Cannabis use disorder F12.90 Homicidal ideations R45.850 Involuntary commitment Z04.6
[2024-03-03] MEDS: losartan 50 mg Tablet 25 MG PO (20:42)
[2024-03-03] MEDS: OLANZapine 5 mg TABLET 15 MG PO (20:42)
[2024-03-03] MEDS: trazodone 50 mg Tablet PO (20:43)
[2024-03-04] VITALS (8 sets, daily range): BP systolic 115–127; BP diastolic 71–91; PULSE 64–109; RESP 16–18; TEMP 36.3–37.2; O2SAT 95–100; BMI 19.3
[2024-03-04] MEDS: nicotine 4 mg lozenge MUCOUS MEM ×7 (06:09→20:04)
[2024-03-04] MEDS: amlodipine 10 mg Tablet PO (08:11)
[2024-03-04] MEDS: hyDRALAzine 25 mg Tablet PO (08:11)
[2024-03-04] MEDS: acetaminophen 325 mg Tablet 650 MG PO ×2 (08:11→17:43)
[2024-03-04] MEDS: ibuprofen 600 mg Tablet PO (10:56)
[2024-03-04] MEDS: docusate sodium 100 mg Capsule PO (10:56)
--- NOTE | 2024-03-04 14:11 | P.NPUPN_ITS ---
Subjective NPU 2 Subjective: Patient is a 54-year-old female admitted with psychosis and alleged homicidal ideation currently involuntarily placed on the neuropsychiatric unit. The patient had been spending some time in her room appearing to stare out the window and reporting that she was admiring all of the colors. She had reported that it was a good thing that designer/writer was Not a false god otherwise I would have to kill you. Patient had reported adequate sleep. She remained compliant on the milieu and reported that her mood had been better. She continued to report being able to see colors and feel God through the air. Mental Status Exam 2 MSE Comments: This is an underweight white female looking older than her stated age in hospital scrubs with limited grooming and eye contact.? No abnormal involuntary motor movements today. She was cooperative with exam in mild distress.? Speech was more productive in speech and normal in rate. Mood described as good . Her affect was more subdued today. Thought process was linear mostly. Thought content: Patient denied suicidal or homicidal ideation. There was evidence of grandiosity, ideas of special abilities and belief that people working here were gods. Attention and concentration were intact and memory appeared mostly reliable, but none were formally tested.? She is alert and oriented x person and place.? Insight and judgment limited, impulse control is limited versus impaired.? Vitals/I&O/Wt Last Vital Signs Temp 98.2 F 03/04/24 11:01 Pulse 103 H 03/04/24 11:01 Resp 16 03/04/24 11:01 BP 115/84 03/04/24 11:01 Pulse Ox 100 03/04/24 11:01 O2 Del Method Room Air 03/04/24 11:01 Weight last 48 hrs Weight 54.431 kg Data NPU 02/27/24 14:50 02/27/24 08:36 A&P Assessment and plan (1) Acute psychosis: (2) Bipolar affective, manic, unspec: (3) Hypertension: (4) Cannabis use disorder: (5) Homicidal ideations: (6) Involuntary commitment: Plan This is a 54-year-old white female denying any mental health history history but reporting some past addiction and some current cannabis use who presented on a 96-hour hold. The patient presented with increased anxiety and anger following the use of pre-rolled joints. The patient's family reported a change in behavior, including yelling and threats, which led to hospitalization. The patient has a history of tobacco and cannabis use and past cocaine use. 1. Continue zyprexa at 15mg at night. She remains odd on the unit. 2. Continue every 15 minute checks for safety. 3. Encourage individual, group and milieu therapies. 4. Obtain collateral information. 5. Encourage sober living treatment after discharge at the highest level of care to which he is willing to commit. 6. Court hearing filed for 21 day hold. Involuntary Hold Information 2 96 Hour Hold: 96 Hour Involuntary Admission: Yes 96 Hour Hold Ending Date: 03/01/24 96 Hour Hold Ending Time: 11:50 Attestations NPU 2 Medical Necessity Statement*: Inpatient hospitalization is medically necessary and the clinically appropriate intervention at this time. We will monitor medications and make changes as indicated. The patient's likely length of stay is 5-7 days. Coding Level of Care Code Acute Code for [facility] Fwd Diagnoses Acute psychosis F23 Bipolar affective, manic, unspec F31.10 Hypertension I10 Cannabis use disorder F12.90 Homicidal ideations R45.850 Involuntary commitment Z04.6
[2024-03-04] MEDS: trazodone 50 mg Tablet PO (19:51)
[2024-03-04] MEDS: OLANZapine 5 mg TABLET 15 MG PO (19:51)
[2024-03-04] MEDS: losartan 50 mg Tablet 25 MG PO (19:52)
[2024-03-05 03:40] VITALS: BP 134/95; PULSE 86; RESP 18; TEMP 36.6; O2SAT 100
[2024-03-05] MEDS: nicotine 4 mg lozenge MUCOUS MEM ×6 (06:05→20:13)
[2024-03-05 07:34] VITALS: BP 140/93; PULSE 80; RESP 16; TEMP 36.6; O2SAT 100
[2024-03-05] MEDS: hyDRALAzine 25 mg Tablet PO (08:33)
[2024-03-05] MEDS: amlodipine 10 mg Tablet PO (08:33)
[2024-03-05] MEDS: ibuprofen 600 mg Tablet PO (10:02)
--- NOTE | 2024-03-05 10:45 | PC.NURSE ---
PT CURRENTLY DENIES SI/HI/AH/VH. PT CURRENTLY APPEARS TO BE RESPONDING TO INTERNAL STIMULI. PT WILL TALK TO THE WALL, AND WILL LAUGH INAPPROPRIATELY. WHILE PT DENIES HI PT ATTEMPTED TO HUG THIS NURSE, THIS NURSE POLITELY DECLINED AND STATED I DO NOT HUG, HOWEVER I GIVE FIST BUMPS. AND PROCEEDED TO FIST BUMP THE PT. THE PT RESPONDED TO THIS WITH GOOD BECAUSE IM HERE TO KILL YOU THE LAUGHED. PT WAS RAMBLING THROUGHOUT ASSESSMENT AND HAD A FLIGHT OF IDEAS. DURING ASSESSMENT PT COULD NOT FOLLOW A SINGULAR THOUGHT MOST OF THE TIME. PT WAS COOPERATIVE WITH ASSESSMENT AND MEDICATIONS. PT CURRENT NEEDS ARE MET AT THIS TIME.
[2024-03-05 12:00] VITALS: BP 124/86; PULSE 103; RESP 16; TEMP 36.6; O2SAT 99
[2024-03-05] MEDS: acetaminophen 325 mg Tablet 650 MG PO ×2 (13:15→20:13)
[2024-03-05 14:56] VITALS: BP 124/88; PULSE 112; RESP 16; TEMP 37.2; O2SAT 98
--- NOTE | 2024-03-05 15:12 | W.PM.NPUPNS ---
Subjective NPU Subjective: Patient is a 54-year-old female admitted with psychosis and alleged homicidal ideation currently involuntarily placed on the neuropsychiatric unit. The patient had appeared compliant on the milieu with no episodes of aggression noted. She had stated that she wanted to continue to get better. She had reported improved sleep but did knowledged having periods of time where the patient had not required sleep and had been engaged in unusual behavior including spending money and describing periods of feeling invincible. She had continued to endorse some odd perceptions stating that she could hear God and see God and everywhere around her. She had spent significant amount time staring out the window but denied any hallucinations. Mental Status Exam MSE Comments: This is an underweight white female looking older than her stated age in hospital scrubs with limited grooming and eye contact.? No abnormal involuntary motor movements today. She was cooperative with exam in mild distress.? Speech was more productive, normal prosody and normal in rate. Mood described as good . Her affect was more subdued today. Thought process was linear mostly. Thought content: Patient denied suicidal or homicidal ideation. There was evidence of grandiosity, ideas of special abilities and belief that people working here were gods. Attention and concentration were intact and memory appeared mostly reliable, but none were formally tested.? She is alert and oriented x person and place.? Insight and judgment limited, impulse control is limited versus impaired.? Vitals/I&O/Wt Last Vital Signs Temp 99 F 03/05/24 14:56 Pulse 112 H 03/05/24 14:56 Resp 16 03/05/24 14:56 BP 124/88 03/05/24 14:56 Pulse Ox 98 03/05/24 14:56 O2 Del Method Room Air 03/05/24 14:56 Weight last 48 hrs Weight 54.431 kg Data NPU 02/27/24 14:50 02/27/24 08:36 A&P Assessment and plan (1) Acute psychosis: (2) Bipolar affective, manic, unspec: (3) Hypertension: (4) Cannabis use disorder: (5) Homicidal ideations: (6) Involuntary commitment: Plan This is a 54-year-old white female denying any mental health history history but reporting some past addiction and some current cannabis use who presented on a 96-hour hold. The patient presented with increased anxiety and anger following the use of pre-rolled joints. The patient's family reported a change in behavior, including yelling and threats, which led to hospitalization. The patient has a history of tobacco and cannabis use and past cocaine use. 1. Continue zyprexa at 15mg at night. 2. Continue every 15 minute checks for safety. 3. Encourage individual, group and milieu therapies. 4. Obtain collateral information. 5. Encourage sober living treatment after discharge at the highest level of care to which he is willing to commit. 6. Court hearing filed for 21 day hold. Involuntary Hold Information 96 Hour Hold: 96 Hour Involuntary Admission: Yes 96 Hour Hold Ending Date: 03/01/24 96 Hour Hold Ending Time: 11:50 Attestations NPU Medical Necessity Statement*: Inpatient hospitalization is medically necessary and the clinically appropriate intervention at this time. We will monitor medications and make changes as indicated. The patient's likely length of stay is 5-7 days. Coding Level of Care Code Acute Code for [facility] Fwd Diagnoses Acute psychosis F23 Bipolar affective, manic, unspec F31.10 Hypertension I10 Cannabis use disorder F12.90 Homicidal ideations R45.850 Involuntary commitment Z04.6
[2024-03-05 19:51] VITALS: BP 133/86; PULSE 110; RESP 18; TEMP 36.9; O2SAT 97
[2024-03-05 20:12] VITALS: BP 133/86
[2024-03-05] MEDS: OLANZapine 5 mg TABLET 15 MG PO (20:12)
[2024-03-05] MEDS: losartan 50 mg Tablet 25 MG PO (20:12)
[2024-03-05] MEDS: trazodone 50 mg Tablet PO (20:13)
[2024-03-06] VITALS (8 sets, daily range): BP systolic 99–138; BP diastolic 63–95; PULSE 80–115; RESP 17–18; TEMP 36.7–36.9; O2SAT 96–100
[2024-03-06] MEDS: nicotine 4 mg lozenge MUCOUS MEM ×8 (06:00→20:32)
[2024-03-06] MEDS: hyDRALAzine 25 mg Tablet PO (08:08)
[2024-03-06] MEDS: acetaminophen 325 mg Tablet 650 MG PO ×2 (08:08→13:33)
[2024-03-06] MEDS: amlodipine 10 mg Tablet PO (08:08)
[2024-03-06] MEDS: docusate sodium 100 mg Capsule PO (08:43)
--- NOTE | 2024-03-06 16:05 | P.NPUPN_ITS ---
Subjective NPU 2 Subjective: Patient is a 54-year-old female admitted with psychosis and alleged homicidal ideation currently involuntarily placed on the neuropsychiatric unit. The patient had stated to her nurse that she would kill her. She had apparently also thought at one time that this particular nurse was her daughter. She appeared to remain somewhat guarded on the unit as she stated that she was frustrated about not going home. She had alleged that the treatment team was somehow getting paid to have her remain here. She had walked out during the interview as she had appeared to become more angry. Despite this, the patient had remained compliant with her medication regimen. She had continued to report having specific chavez and reported that God was all around her and could be seen outside and in the air that we breathe. Mental Status Exam 2 MSE Comments: This is an underweight white female looking older than her stated age in hospital scrubs with limited grooming and eye contact.? No abnormal involuntary motor movements today. She was less cooperative with exam in moderate distress.? Speech was more productive, normal prosody and normal in rate. Mood described as I am fine, I want to go home . Her affect was more irritable Thought process was linear mostly. Thought content: Patient denied suicidal or homicidal ideation. There was evidence of grandiosity, ideas of special abilities. Her Attention and concentration were intact and memory appeared mostly reliable, but none were formally tested.? She is alert and oriented x person and place.? Insight and judgment limited, impulse control is limited versus impaired.? Vitals/I&O/Wt Last Vital Signs Temp 98.5 F 03/06/24 04:00 Pulse 103 H 03/06/24 12:00 Resp 17 03/06/24 12:00 BP 130/89 03/06/24 12:00 Pulse Ox 100 03/06/24 12:00 O2 Del Method Room Air 03/06/24 04:00 Data NPU 02/27/24 14:50 02/27/24 08:36 A&P Assessment and plan (1) Acute psychosis: (2) Bipolar affective, manic, unspec: (3) Hypertension: (4) Cannabis use disorder: (5) Homicidal ideations: (6) Involuntary commitment: Plan This is a 54-year-old white female denying any mental health history history but reporting some past addiction and some current cannabis use who presented on a 96-hour hold. The patient presented with increased anxiety and anger following the use of pre-rolled joints. The patient's family reported a change in behavior, including yelling and threats, which led to hospitalization. The patient has a history of tobacco and cannabis use and past cocaine use. 1. Increase zyprexa 20mg at night. 2. Continue every 15 minute checks for safety. 3. Encourage individual, group and milieu therapies. 4. Obtain collateral information. 5. Encourage sober living treatment after discharge at the highest level of care to which he is willing to commit. 6. Court hearing filed for 21 day hold. Patient likely to receive Relprev IM long acting monthly olanzapine. Involuntary Hold Information 2 96 Hour Hold: 96 Hour Involuntary Admission: Yes 96 Hour Hold Ending Date: 03/01/24 96 Hour Hold Ending Time: 11:50 Attestations NPU 2 Medical Necessity Statement*: Inpatient hospitalization is medically necessary and the clinically appropriate intervention at this time. We will monitor medications and make changes as indicated. The patient's likely length of stay is 5-7 days. Coding Level of Care Code Acute Code for [facility] Fwd Diagnoses Acute psychosis F23 Bipolar affective, manic, unspec F31.10 Hypertension I10 Cannabis use disorder F12.90 Homicidal ideations R45.850 Involuntary commitment Z04.6
[2024-03-06] MEDS: OLANZapine 5 mg TABLET 20 MG PO (20:31)
[2024-03-06] MEDS: trazodone 50 mg Tablet PO (20:31)
[2024-03-06] MEDS: ibuprofen 600 mg Tablet PO (20:32)
[2024-03-06] MEDS: losartan 50 mg Tablet 25 MG PO (20:32)
[2024-03-07 04:00] VITALS: BP 124/84; PULSE 92; RESP 18; TEMP 36.6; O2SAT 100
[2024-03-07] MEDS: nicotine 4 mg lozenge MUCOUS MEM ×8 (04:32→19:52)
[2024-03-07 07:55] VITALS: BP 145/96; PULSE 102; RESP 17; O2SAT 98
[2024-03-07] MEDS: ibuprofen 600 mg Tablet PO ×3 (08:09→20:41)
[2024-03-07] MEDS: docusate sodium 100 mg Capsule PO (08:10)
[2024-03-07] MEDS: amlodipine 10 mg Tablet PO (08:10)
[2024-03-07] MEDS: hyDRALAzine 25 mg Tablet PO (08:10)
[2024-03-07 12:00] VITALS: BP 141/94; PULSE 107; RESP 18; O2SAT 100
[2024-03-07] MEDS: acetaminophen 325 mg Tablet 650 MG PO ×2 (12:04→17:29)
[2024-03-07 15:58] VITALS: BP 142/91; PULSE 85; RESP 16; TEMP 36.7; O2SAT 100
--- NOTE | 2024-03-07 18:12 | P.NPUPN_ITS ---
Subjective NPU 2 Subjective: Patient is a 54-year-old female admitted with psychosis and alleged homicidal ideation currently involuntarily placed on the neuropsychiatric unit. The patient reported that she was doing fine and did not discuss the issues that had led to her hospitalization. She had stated that she did not want to talk about it and became agitated. She had continued to make veiled threats towards staff. She had appeared more irritable and reported frustration at being here in the hospital. She had stated that she was working with God and that God would be our rice dryer mechanic after she left here. The patient had adequate sleep. She had been yelling at the wall while no one was present. She reported frustration with staff and stated that she had spoken with her family who had expressed that they wanted her to come home today. Mental Status Exam 2 MSE Comments: This is an underweight white female looking older than her stated age in hospital scrubs with limited grooming and eye contact.? No abnormal involuntary motor movements today. She was less cooperative with exam in moderate to severe distress.? Speech was more productive, normal prosody and normal in rate. Mood described as I am fine, I want to go home . Her affect was agitated and intense today. Thought process was linear mostly. Thought content: Patient endorsed homicidal threats to staff. She denied any suicidal ideation. There was evidence of grandiosity, ideas of special abilities. Her Attention and concentration were intact and memory appeared mostly reliable, but none were formally tested.? She is alert and oriented x person and place.? Insight and judgment limited, impulse control is limited versus impaired.? Vitals/I&O/Wt Last Vital Signs Temp 98.0 F 03/07/24 15:58 Pulse 85 03/07/24 15:58 Resp 16 03/07/24 15:58 BP 142/91 03/07/24 15:58 Pulse Ox 100 03/07/24 15:58 O2 Del Method Room Air 03/06/24 04:00 Data NPU 02/27/24 14:50 02/27/24 08:36 A&P Assessment and plan (1) Acute psychosis: (2) Bipolar affective, manic, unspec: (3) Hypertension: (4) Cannabis use disorder: (5) Homicidal ideations: (6) Involuntary commitment: Plan This is a 54-year-old white female denying any mental health history history but reporting some past addiction and some current cannabis use who presented on a 96-hour hold. The patient presented with increased anxiety and anger following the use of pre-rolled joints. The patient's family reported a change in behavior, including yelling and threats, which led to hospitalization. The patient has a history of tobacco and cannabis use and past cocaine use. 1. Zyprexa does not appear to be helpful and will begin process of initiation of Invega at 3mg daily with reduction in zyprexa to 10mg at night. terminal manager plan will involve IM monthly invega if tolerated. 2. Continue every 15 minute checks for safety. 3. Encourage individual, group and milieu therapies. 4. Obtain collateral information. 5. Encourage sober living treatment after discharge at the highest level of care to which he is willing to commit. 6. Patient on 21 day hold Involuntary Hold Information 2 96 Hour Hold: 96 Hour Involuntary Admission: Yes 96 Hour Hold Ending Date: 03/01/24 96 Hour Hold Ending Time: 11:50 Attestations NPU 2 Medical Necessity Statement*: Inpatient hospitalization is medically necessary and the clinically appropriate intervention at this time. We will monitor medications and make changes as indicated. The patient's likely length of stay is 7-10 days. Coding Level of Care Code Acute Code for [facility] Fwd Diagnoses Acute psychosis F23 Bipolar affective, manic, unspec F31.10 Hypertension I10 Cannabis use disorder F12.90 Homicidal ideations R45.850 Involuntary commitment Z04.6
[2024-03-07 20:00] VITALS: BP 148/98; PULSE 105; RESP 18; TEMP 37.2; O2SAT 97
[2024-03-07] MEDS: OLANZapine 5 mg TABLET 10 MG PO (20:41)
[2024-03-07] MEDS: paliperidone ER 3 mg Tablet PO (20:41)
[2024-03-07 20:42] VITALS: BP 148/98
[2024-03-07] MEDS: losartan 50 mg Tablet 25 MG PO (20:42)
[2024-03-08] VITALS (8 sets, daily range): BP systolic 109–152; BP diastolic 67–98; PULSE 90–105; RESP 15–18; TEMP 36.5–37.3; O2SAT 96–100
[2024-03-08] MEDS: nicotine 4 mg lozenge MUCOUS MEM ×9 (02:00→20:54)
[2024-03-08] MEDS: acetaminophen 325 mg Tablet 650 MG PO (06:02)
--- NOTE | 2024-03-08 08:56 | PC.NURSE ---
This RN observed the patient pointing to the corner of her room and speaking to someone/something that was not there. However, she denies avh. She also denies si/hi. Patient does say she is feeling stressed and when asked what might be causing her stress she replied, just, ya know, stretching far. She held up a pair of socks and asked where they came from. This RN told her that her son had brought them in for her and mentioned that her son favored her quite a bit. She replied, ya, I think he's God. Patient pleasant this morning.
[2024-03-08] MEDS: hyDRALAzine 25 mg Tablet PO (09:06)
[2024-03-08] MEDS: amlodipine 10 mg Tablet PO (09:06)
[2024-03-08] MEDS: ibuprofen 600 mg Tablet PO (10:58)
--- NOTE | 2024-03-08 13:10 | PC.NURSE ---
NEW ORDERS RECEIVED TO FROM DR. CANTRELL TO COLLECT AM LABS TOMORROW SEE ORDERS FOR DETAILS
--- NOTE | 2024-03-08 14:19 | W.PM.NPUPNS ---
Subjective NPU Subjective: Patient is a 54-year-old female admitted with psychosis and alleged homicidal ideation currently involuntarily placed on the neuropsychiatric unit. Patient remained irritable on the milieu. She had continued to t report that specific people here were God's. She had been somewhat guarded and had been staying in her room for extended periods of time. She had reported that she wanted to know when she was better and then she would be able to go home as she stated no desire to talk to her family members. She continued to report no desire to discuss what had led to her being hospitalized. Patient reports that she was spending time reading the bible. Mental Status Exam MSE Comments: This is an underweight white female looking older than her stated age in hospital scrubs with limited grooming and eye contact.? No abnormal involuntary motor movements today. She was less cooperative with exam in moderate distress.? Speech was tank, normal prosody and normal in rate. Mood described as I am fine, just tell me when i am ready to go, your God . Her affect was irritable. Thought process was linear mostly. Thought content: Patient endorsed homicidal threats to staff. She denied any suicidal ideation. There was evidence of grandiosity, ideas of special abilities. Her attention and concentration were intact and memory appeared mostly reliable, but none were formally tested.? She is alert and oriented x person and place.? Insight and judgment limited, impulse control is limited versus impaired.? Vitals/I&O/Wt Last Vital Signs Temp 98.4 F 03/08/24 12:00 Pulse 97 03/08/24 12:00 Resp 18 03/08/24 12:00 BP 131/94 03/08/24 12:00 Pulse Ox 100 03/08/24 12:00 O2 Del Method Room Air 03/08/24 04:00 Data NPU 02/27/24 14:50 02/27/24 08:36 A&P Assessment and plan (1) Acute psychosis: (2) Bipolar affective, manic, unspec: (3) Hypertension: (4) Cannabis use disorder: (5) Homicidal ideations: (6) Involuntary commitment: Plan This is a 54-year-old white female denying any mental health history history but reporting some past addiction and some current cannabis use who presented on a 96-hour hold. The patient presented with increased anxiety and anger following the use of pre-rolled joints. The patient's family reported a change in behavior, including yelling and threats, which led to hospitalization. The patient has a history of tobacco and cannabis use and past cocaine use. 1. Increase invega 6mg at night and decrease zyprexa to 5mg at night. 2. Continue every 15 minute checks for safety. 3. Encourage individual, group and milieu therapies. 4. Obtain collateral information. 5. Encourage sober living treatment after discharge at the highest level of care to which he is willing to commit. 6. Patient on 21 day hold Involuntary Hold Information 96 Hour Hold: 96 Hour Involuntary Admission: Yes 96 Hour Hold Ending Date: 03/01/24 96 Hour Hold Ending Time: 11:50 Attestations NPU Medical Necessity Statement*: Inpatient hospitalization is medically necessary and the clinically appropriate intervention at this time. We will monitor medications and make changes as indicated. The patient's likely length of stay is 7-10 days. Coding Level of Care Code Acute Code for [facility] Fwd Diagnoses Acute psychosis F23 Bipolar affective, manic, unspec F31.10 Hypertension I10 Cannabis use disorder F12.90 Homicidal ideations R45.850 Involuntary commitment Z04.6
[2024-03-08] MEDS: paliperidone ER 6 mg Tablet PO (20:54)
[2024-03-08] MEDS: OLANZapine 5 mg TABLET PO (20:55)
[2024-03-08] MEDS: losartan 50 mg Tablet 25 MG PO (20:55)
[2024-03-09] MEDS: nicotine 4 mg lozenge MUCOUS MEM ×8 (02:36→21:50)
[2024-03-09 04:00] VITALS: BP 153/78; PULSE 90; RESP 15; TEMP 37.1; O2SAT 99
[2024-03-09 06:55] LABS: Eosinophils # 0.2 10^3/uL (0.0-0.8); Eosinophils % 4.2 %; Hematocrit 33.9 % (36-47); Lymphocytes # 1.7 10^3/uL (0.8-4.8); Lymphocytes % 41.6 %; Mean Corpuscular HGB Conc 35.7 g/dL (30-55); Mean Corpuscular Hemoglobin 33.5 pg (27-33); Mean Corpuscular Volume 93.9 fl (85-98); Mean Platelet Volume 12.1 fL (7.4-10.4); Monocytes # 0.4 10^3/uL (0.2-0.9); Monocytes % 9.4 %; Neutrophils # 1.76 10^3/uL (1.8-7.7); Neutrophils % 43.6 %; Nucleated Red Blood Cells # 0.3 /100WBC; Nucleated Red Blood Cells % 8.4 %; Platelet Count 372 10^3/cmm (157-399); Red Blood Count 3.61 10^6/uL (3.85-5.65); Red Cell Distribution Width 14.1 % (12.1-15.1); White Blood Count 4.04 10^3/uL (3.29-11.43)
[2024-03-09 07:22] LABS: Iron 115 ug/dL (37-145); Percent Saturation 26.7 % (20-50); Total Iron Binding Capacity 430 mcg/dl; Unsaturated Iron Binding 315 ug/dL (112-347)
[2024-03-09 07:31] LABS: Free T4 Free Thyroxine 1.16 ng/dL (0.82-1.77); T3 Free 2.9 PG/ML (2.0-4.4); Thyroid Stimulating Hormone 2.33 uIU/mL (0.27-4.20)
[2024-03-09 07:37] LABS: Vitamin B12 482 pg/mL (232-1245)
[2024-03-09 07:46] LABS: Folate Level > 20.0 ng/mL (4.8-37.3)
[2024-03-09 07:54] VITALS: BP 122/84; PULSE 110; RESP 16; TEMP 36.8; O2SAT 98
[2024-03-09] MEDS: amlodipine 10 mg Tablet PO (07:56)
[2024-03-09] MEDS: hyDRALAzine 25 mg Tablet PO (07:56)
[2024-03-09 11:33] VITALS: BP 126/89; PULSE 62; RESP 16; TEMP 36.6; O2SAT 98
[2024-03-09] MEDS: OLANZapine 5 mg ODT PO (12:27)
[2024-03-09] MEDS: loperamide 2 mg Capsule PO (12:29)
[2024-03-09] MEDS: haloperidol 5 mg Tablet PO (13:51)
--- NOTE | 2024-03-09 14:28 | PC.NURSE ---
Patient has been administered zyprexa 5mg odt and haldol 5mg po approximately 1 hour later due to patient interacting with someone/something in her room that is not there. Patient was observed to be talking to the wall and making abnormal motions with her hands. Patient reported feeling panicked and like she could not sit still. She said she couldn't focus on just one thing and this RN noted the patient's hands were trembling. Patient cooperative with staff, just appears to be very anxious.
[2024-03-09] MEDS: hyDROXYzine 25 mg Capsule 50 MG PO ×2 (15:56→21:49)
[2024-03-09 16:00] VITALS: BP 157/105; PULSE 109; RESP 16; TEMP 36.6; O2SAT 99
--- NOTE | 2024-03-09 16:02 | PC.NURSE ---
This RN notified Dr. Marie that the patient has continued to have consistent episodes of diarrhea despite being administered imodium. Dr. Marie requested an order be put in for 1 tablet of lomotil once.
[2024-03-09] MEDS: diphenoxylate/atropine Tablet 1 TAB PO (16:15)
--- NOTE | 2024-03-09 17:11 | P.NPUPN_ITS ---
Subjective NPU 2 Subjective: Patient presented today reporting that she was doing fine. She reports that she is tolerating her medication without side effects. We discussed her recent setback which led to her not being discharged already and she identified wanting to do what was necessary to be able to leave. Mental Status Exam 2 MSE Comments: This is an underweight white female looking older than her stated age in hospital scrubs with limited grooming and eye contact.? No abnormal involuntary motor movements today. She was mostly cooperative with exam in no acute distress.? Speech was normal volume, prosody and normal in rate. Mood described as thanks for taking care of him doing pretty well., Her affect was pleasant and congruent. Thought process was linear mostly. Thought content: Patient denies suicidal or homicidal ideation. There was evidence of grandiosity, ideas of special abilities. Her attention and concentration were intact and memory appeared mostly reliable, but none were formally tested.? She is alert and oriented x person and place.? Insight and judgment limited, impulse control is limited versus impaired.? Vitals/I&O/Wt Last Vital Signs Temp 97.9 F 03/09/24 16:00 Pulse 109 H 03/09/24 16:00 Resp 16 03/09/24 16:00 BP 157/105 03/09/24 16:00 Pulse Ox 99 03/09/24 16:00 O2 Del Method Room Air 03/09/24 16:00 Data NPU 03/09/24 06:45 02/27/24 08:36 A&P Assessment and plan (1) Acute psychosis: (2) Bipolar affective, manic, unspec: (3) Hypertension: (4) Cannabis use disorder: (5) Homicidal ideations: (6) Involuntary commitment: Plan This is a 54-year-old white female denying any mental health history history but reporting some past addiction and some current cannabis use who presented on a 96-hour hold. The patient presented with increased anxiety and anger following the use of pre-rolled joints. The patient's family reported a change in behavior, including yelling and threats, which led to hospitalization. The patient has a history of tobacco and cannabis use and past cocaine use. 1. Increase invega 6mg at night and decreased zyprexa to 5mg at night. 2. Continue every 15 minute checks for safety. 3. Encourage individual, group and milieu therapies. 4. Obtain collateral information. 5. Encourage sober living treatment after discharge at the highest level of care to which he is willing to commit. 6. Patient on 21 day hold Involuntary Hold Information 2 96 Hour Hold: 96 Hour Involuntary Admission: Yes 96 Hour Hold Ending Date: 03/01/24 96 Hour Hold Ending Time: 11:50 Attestations NPU 2 Medical Necessity Statement*: Inpatient hospitalization is medically necessary and the clinically appropriate intervention at this time. We will monitor medications and make changes as indicated. The patient's likely length of stay is 7-10 days. Coding Level of Care Code Acute Code for [facility] Fwd Diagnoses Acute psychosis F23 Bipolar affective, manic, unspec F31.10 Hypertension I10 Cannabis use disorder F12.90 Homicidal ideations R45.850 Involuntary commitment Z04.6
[2024-03-09 17:27] VITALS: BP 131/89; PULSE 119; RESP 16; O2SAT 100
[2024-03-09 20:00] VITALS: BP 132/72; PULSE 105; RESP 16; TEMP 37.7; O2SAT 97
[2024-03-09] MEDS: acetaminophen 325 mg Tablet 650 MG PO (21:48)
[2024-03-09] MEDS: trazodone 50 mg Tablet PO (21:49)
[2024-03-09] MEDS: losartan 50 mg Tablet 25 MG PO (21:49)
[2024-03-09] MEDS: paliperidone ER 6 mg Tablet PO (21:50)
[2024-03-09] MEDS: OLANZapine 5 mg TABLET PO (21:50)
[2024-03-10] VITALS (7 sets, daily range): BP systolic 104–139; BP diastolic 72–93; PULSE 83–112; RESP 16; TEMP 36.5–37.1; O2SAT 96–100
[2024-03-10] MEDS: nicotine 4 mg lozenge MUCOUS MEM ×7 (02:16→17:40)
[2024-03-10] MEDS: hyDRALAzine 25 mg Tablet PO (08:07)
[2024-03-10] MEDS: ibuprofen 600 mg Tablet PO (08:07)
[2024-03-10] MEDS: amlodipine 10 mg Tablet PO (08:07)
[2024-03-10] MEDS: hyDROXYzine 25 mg Capsule 50 MG PO ×2 (08:11→16:02)
--- NOTE | 2024-03-10 08:38 | P.NPUPN_ITS ---
Subjective NPU 2 Subjective: Patient presented today reporting that she is feeling very appreciative of the care that she has received here. This is a significant change from recent days per staff reports. We discussed working with her family and the treatment team on possible discharge next week if she continues to have improvement. She denied any significant side effects from her medication. Mental Status Exam 2 MSE Comments: This is an underweight white female looking older than her stated age in hospital scrubs with limited grooming and eye contact.? No abnormal involuntary motor movements today. She was mostly cooperative with exam in no acute distress.? Speech was normal volume, prosody and normal in rate. Mood described as thanks for taking care of him doing pretty well., Her affect was pleasant and congruent. Thought process was linear mostly. Thought content: Patient denies suicidal or homicidal ideation. There was evidence of grandiosity, ideas of special abilities. Her attention and concentration were intact and memory appeared mostly reliable, but none were formally tested.? She is alert and oriented x person and place.? Insight and judgment limited, impulse control is limited versus impaired.? Vitals/I&O/Wt Last Vital Signs Temp 98.8 F 03/10/24 07:24 Pulse 110 H 03/10/24 07:24 Resp 16 03/10/24 07:24 BP 128/84 03/10/24 07:24 Pulse Ox 100 03/10/24 07:24 O2 Del Method Room Air 03/10/24 07:24 Data NPU 03/09/24 06:45 02/27/24 08:36 A&P Assessment and plan (1) Acute psychosis: (2) Bipolar affective, manic, unspec: (3) Hypertension: (4) Cannabis use disorder: (5) Homicidal ideations: (6) Involuntary commitment: Plan This is a 54-year-old white female denying any mental health history history but reporting some past addiction and some current cannabis use who presented on a 96-hour hold. The patient presented with increased anxiety and anger following the use of pre-rolled joints. The patient's family reported a change in behavior, including yelling and threats, which led to hospitalization. The patient has a history of tobacco and cannabis use and past cocaine use. 1. Increase invega 6mg at night and decreased zyprexa to 5mg at night. 2. Continue every 15 minute checks for safety. 3. Encourage individual, group and milieu therapies. 4. Obtain collateral information. 5. Encourage sober living treatment after discharge at the highest level of care to which he is willing to commit. 6. Patient on 21 day hold Involuntary Hold Information 2 96 Hour Hold: 96 Hour Involuntary Admission: Yes 96 Hour Hold Ending Date: 03/01/24 96 Hour Hold Ending Time: 11:50 Attestations NPU 2 Medical Necessity Statement*: Inpatient hospitalization is medically necessary and the clinically appropriate intervention at this time. We will monitor medications and make changes as indicated. The patient's likely length of stay is 6-9 days. Coding Level of Care Code Acute Code for [facility] Fwd Diagnoses Acute psychosis F23 Bipolar affective, manic, unspec F31.10 Hypertension I10 Cannabis use disorder F12.90 Homicidal ideations R45.850 Involuntary commitment Z04.6
[2024-03-10] MEDS: OLANZapine 5 mg ODT PO (11:33)
[2024-03-10] MEDS: haloperidol 5 mg Tablet PO (14:48)
--- NOTE | 2024-03-10 14:49 | PC.NURSE ---
Administered 5mg PO Haldol to pt experiencing Auditory Hallucinations, this nurse witnessed pt talking to someone that no one else can see.
[2024-03-10] MEDS: losartan 50 mg Tablet 25 MG PO (20:21)
[2024-03-10] MEDS: paliperidone ER 6 mg Tablet PO (20:21)
[2024-03-10] MEDS: OLANZapine 5 mg TABLET PO (20:22)
[2024-03-11] VITALS (7 sets, daily range): BP systolic 109–129; BP diastolic 67–86; PULSE 89–121; RESP 16; TEMP 36.6–37.1; O2SAT 97–100
[2024-03-11] MEDS: nicotine 4 mg lozenge MUCOUS MEM ×7 (06:06→21:17)
[2024-03-11] MEDS: hyDROXYzine 25 mg Capsule 50 MG PO ×2 (07:31→14:09)
[2024-03-11] MEDS: amlodipine 10 mg Tablet PO (08:09)
[2024-03-11] MEDS: hyDRALAzine 25 mg Tablet PO (08:09)
[2024-03-11] MEDS: OLANZapine 5 mg ODT PO ×2 (08:32→15:40)
[2024-03-11] MEDS: haloperidol 5 mg Tablet PO (11:16)
--- NOTE | 2024-03-11 18:22 | P.NPUPN_ITS ---
Subjective NPU 2 Subjective: Patient presented today reporting that things are better. She identified the likely option of her being able to go home with her family. We agreed we would work with the social work team on Tuesday to see how the family felt she was doing and continue discussions about discharge with the possibility of it happening this week. She denied any side effects of any medications. Mental Status Exam 2 MSE Comments: This is an underweight white female looking older than her stated age in hospital scrubs with limited grooming and eye contact.? No abnormal involuntary motor movements today. She was mostly cooperative with exam in no acute distress.? Speech was normal volume, prosody and normal in rate. Mood described as thanks for taking care of him doing pretty well., Her affect was pleasant and congruent. Thought process was linear mostly. Thought content: Patient denies suicidal or homicidal ideation. There was evidence of grandiosity, ideas of special abilities. Her attention and concentration were intact and memory appeared mostly reliable, but none were formally tested.? She is alert and oriented x person and place.? Insight and judgment limited, impulse control is limited versus impaired.? Vitals/I&O/Wt Last Vital Signs Temp 98.2 F 03/11/24 16:00 Pulse 107 H 03/11/24 16:00 Resp 16 03/11/24 16:00 BP 123/84 03/11/24 16:00 Pulse Ox 96 03/11/24 16:00 O2 Del Method Room Air 03/11/24 16:00 Weight last 48 hrs Weight 53.887 kg Data NPU 03/09/24 06:45 02/27/24 08:36 A&P Assessment and plan (1) Acute psychosis: (2) Bipolar affective, manic, unspec: (3) Hypertension: (4) Cannabis use disorder: (5) Homicidal ideations: (6) Involuntary commitment: Plan This is a 54-year-old white female denying any mental health history history but reporting some past addiction and some current cannabis use who presented on a 96-hour hold. The patient presented with increased anxiety and anger following the use of pre-rolled joints. The patient's family reported a change in behavior, including yelling and threats, which led to hospitalization. The patient has a history of tobacco and cannabis use and past cocaine use. 1. Increase invega 6mg at night and decreased zyprexa to 5mg at night. 2. Continue every 15 minute checks for safety. 3. Encourage individual, group and milieu therapies. 4. Obtain collateral information. 5. Encourage sober living treatment after discharge at the highest level of care to which he is willing to commit. 6. Patient on 21 day hold Involuntary Hold Information 2 96 Hour Hold: 96 Hour Involuntary Admission: Yes 96 Hour Hold Ending Date: 03/01/24 96 Hour Hold Ending Time: 11:50 Attestations NPU 2 Medical Necessity Statement*: Inpatient hospitalization is medically necessary and the clinically appropriate intervention at this time. We will monitor medications and make changes as indicated. The patient's likely length of stay is 5-7 days. Coding Level of Care Code Acute Code for [facility] Fwd Diagnoses Acute psychosis F23 Bipolar affective, manic, unspec F31.10 Hypertension I10 Cannabis use disorder F12.90 Homicidal ideations R45.850 Involuntary commitment Z04.6
[2024-03-11] MEDS: OLANZapine 5 mg TABLET PO (21:16)
[2024-03-11] MEDS: losartan 50 mg Tablet 25 MG PO (21:16)
[2024-03-11] MEDS: paliperidone ER 6 mg Tablet PO (21:17)
[2024-03-12] MEDS: nicotine 4 mg lozenge MUCOUS MEM ×3 (05:49→19:39)
[2024-03-12 06:00] VITALS: BP 111/78; PULSE 106; RESP 16; TEMP 36.7; O2SAT 96
[2024-03-12] MEDS: hyDROXYzine 25 mg Capsule 50 MG PO ×2 (08:30→16:02)
[2024-03-12] MEDS: hyDRALAzine 25 mg Tablet PO (08:31)
[2024-03-12] MEDS: amlodipine 10 mg Tablet PO (08:31)
--- NOTE | 2024-03-12 08:51 | PC.NURSE ---
PT CURRENTLY DENIES SI/HI/AH/VH. PT CURRENTLY DENIES DEPRESSION. PT CURRENTLY ENDORSES ANXIETY RATING IT A 9/10 ON A 0-10 SCALE WHERE 0 IS NONE AND 10 IS THE WORST POSSIBLE. PT REQUESTED PRN VISTARIL FOR ANXIETY. THIS NURSE ADMINISTERED THIS MEDICATION ALONG SIDE MORNING MEDICATION. PT WAS COOPERATIVE WITH ASSESSMENT AND MEDICATIONS. PT CURRENT NEEDS ARE MET AT THIS TIME.
[2024-03-12] MEDS: nicotine 21 mg Patch 1 PATCH TRANSDERMA (11:09)
[2024-03-12 14:00] VITALS: BP 145/84; PULSE 105; RESP 18; TEMP 36.6; O2SAT 100
[2024-03-12] MEDS: OLANZapine 5 mg ODT PO (17:48)
--- NOTE | 2024-03-12 18:41 | P.NPUPN_ITS ---
Subjective NPU 2 Subjective: Patient presented today reporting that she is feeling fairly good. She has identified that her family is ready and wanting her to come home. We discussed the fact that the social work team has been playing phone tag with her son but that we will speak to him directly to make sure we understand their impression of how she is doing. We agreed that we would use that information to assist us in determining her appropriateness for discharge likely this week. Staff reports no incidences of aggression or odd behavior and none noted on direct observation. She denied side effects to her medications. Mental Status Exam 2 MSE Comments: This is an underweight white female looking older than her stated age in hospital scrubs with limited grooming and eye contact.? Absent dentition. No abnormal involuntary motor movements today. She was mostly cooperative with exam in no acute distress.? Speech was normal volume, prosody and normal in rate. Mood described as better and hopeful for discharge tomorrow, Her affect was pleasant and congruent. Thought process was linear mostly. Thought content: Patient denies suicidal or homicidal ideation. There was no clear evidence of grandiosity, ideas of special abilities. Her attention and concentration were intact and memory appeared mostly reliable, but none were formally tested.? She is alert and oriented x person and place.? Insight and judgment limited, impulse control is limited versus impaired.? Vitals/I&O/Wt Last Vital Signs Temp 98 F 03/12/24 14:00 Pulse 105 H 03/12/24 14:00 Resp 18 03/12/24 14:00 BP 145/84 03/12/24 14:00 Pulse Ox 100 03/12/24 14:00 O2 Del Method Room Air 03/11/24 16:00 Weight last 48 hrs Weight 53.887 kg Data NPU 03/09/24 06:45 02/27/24 08:36 A&P Assessment and plan (1) Acute psychosis: (2) Bipolar affective, manic, unspec: (3) Hypertension: (4) Cannabis use disorder: (5) Homicidal ideations: (6) Involuntary commitment: Plan This is a 54-year-old white female denying any mental health history history but reporting some past addiction and some current cannabis use who presented on a 96-hour hold. The patient presented with increased anxiety and anger following the use of pre-rolled joints. The patient's family reported a change in behavior, including yelling and threats, which led to hospitalization. The patient has a history of tobacco and cannabis use and past cocaine use. 1. Increase invega 6mg at night and decreased zyprexa to 5mg at night. 2. Continue every 15 minute checks for safety. 3. Encourage individual, group and milieu therapies. 4. Obtain collateral information. 5. Encourage sober living treatment after discharge at the highest level of care to which she is willing to commit. 6. Patient on 21 day hold Involuntary Hold Information 2 96 Hour Hold: 96 Hour Involuntary Admission: Yes 96 Hour Hold Ending Date: 03/01/24 96 Hour Hold Ending Time: 11:50 Attestations NPU 2 Medical Necessity Statement*: Inpatient hospitalization is medically necessary and the clinically appropriate intervention at this time. We will monitor medications and make changes as indicated. The patient's likely length of stay is 2-4 days. Coding Level of Care Code Acute Code for [facility] Fwd Diagnoses Acute psychosis F23 Bipolar affective, manic, unspec F31.10 Hypertension I10 Cannabis use disorder F12.90 Homicidal ideations R45.850 Involuntary commitment Z04.6
[2024-03-12 19:35] VITALS: BP 136/90; PULSE 107; RESP 18; TEMP 36.7; O2SAT 99
[2024-03-12 19:39] VITALS: BP 136/90
[2024-03-12] MEDS: OLANZapine 5 mg TABLET PO (19:39)
[2024-03-12] MEDS: losartan 50 mg Tablet 25 MG PO (19:39)
[2024-03-12] MEDS: paliperidone ER 6 mg Tablet PO (19:40)
[2024-03-13 06:00] VITALS: BP 120/84; PULSE 95; RESP 18; TEMP 36.9; O2SAT 97
[2024-03-13] MEDS: nicotine 4 mg lozenge MUCOUS MEM ×6 (06:06→19:36)
[2024-03-13] MEDS: hyDROXYzine 25 mg Capsule 50 MG PO ×2 (08:02→14:09)
[2024-03-13] MEDS: hyDRALAzine 25 mg Tablet PO (08:02)
[2024-03-13] MEDS: amlodipine 10 mg Tablet PO (08:02)
[2024-03-13] MEDS: OLANZapine 5 mg ODT PO ×2 (12:19→16:49)
[2024-03-13 14:00] VITALS: BP 112/78; PULSE 98; RESP 16; TEMP 36.8; O2SAT 98
--- NOTE | 2024-03-13 15:43 | P.NPUPN_ITS ---
Subjective NPU 2 Subjective: Patient presents today reporting she is not happy. She continues to struggle with not being discharged. We discussed how significantly better she is doing and that at this point is just a matter of time. We discussed the tentative plan for discharge on as family is trying to get the home inspected and ready for her to be there. She denies any side effects of the medication. Mental Status Exam 2 MSE Comments: This is an underweight white female looking older than her stated age in hospital scrubs with limited grooming and eye contact.? Absent dentition. No abnormal involuntary motor movements today. She was mostly cooperative with exam in no acute distress.? Speech was normal volume, prosody and normal in rate. Mood described as better and hopeful for discharge tomorrow, Her affect was pleasant and congruent. Thought process was linear mostly. Thought content: Patient denies suicidal or homicidal ideation. There was no clear evidence of grandiosity, ideas of special abilities. Her attention and concentration were intact and memory appeared mostly reliable, but none were formally tested.? She is alert and oriented x person and place.? Insight and judgment limited, impulse control is limited versus impaired.? Vitals/I&O/Wt Last Vital Signs Temp 98.2 F 03/13/24 14:00 Pulse 98 03/13/24 14:00 Resp 16 03/13/24 14:00 BP 112/78 03/13/24 14:00 Pulse Ox 98 03/13/24 14:00 O2 Del Method Room Air 03/13/24 14:00 Data NPU 03/09/24 06:45 02/27/24 08:36 A&P Assessment and plan (1) Acute psychosis: (2) Bipolar affective, manic, unspec: (3) Hypertension: (4) Cannabis use disorder: (5) Homicidal ideations: (6) Involuntary commitment: Plan This is a 54-year-old white female denying any mental health history history but reporting some past addiction and some current cannabis use who presented on a 96-hour hold. The patient presented with increased anxiety and anger following the use of pre-rolled joints. The patient's family reported a change in behavior, including yelling and threats, which led to hospitalization. The patient has a history of tobacco and cannabis use and past cocaine use. 1. Increase invega 6mg at night and decreased zyprexa to 5mg at night. 2. Continue every 15 minute checks for safety. 3. Encourage individual, group and milieu therapies. 4. Obtain collateral information. 5. Encourage sober living treatment after discharge at the highest level of care to which she is willing to commit. 6. Patient on day hold. Tentative plan for discharge on . Involuntary Hold Information 2 96 Hour Hold: 96 Hour Involuntary Admission: Yes 96 Hour Hold Ending Date: 03/01/24 96 Hour Hold Ending Time: 11:50 Attestations NPU 2 Medical Necessity Statement*: Inpatient hospitalization is medically necessary and the clinically appropriate intervention at this time. We will monitor medications and make changes as indicated. The patient's likely length of stay is 1-3 days. Coding Level of Care Code Acute Code for [facility] Fwd Diagnoses Acute psychosis F23 Bipolar affective, manic, unspec F31.10 Hypertension I10 Cannabis use disorder F12.90 Homicidal ideations R45.850 Involuntary commitment Z04.6
[2024-03-13 19:21] VITALS: BP 125/85; PULSE 118; RESP 18; TEMP 36.7; O2SAT 96
[2024-03-13] MEDS: OLANZapine 5 mg TABLET PO (19:35)
[2024-03-13] MEDS: paliperidone ER 6 mg Tablet PO (19:35)
[2024-03-13] MEDS: losartan 50 mg Tablet 25 MG PO (19:35)
[2024-03-14 06:00] VITALS: BP 124/75; PULSE 100; RESP 18; TEMP 36.6; O2SAT 97
[2024-03-14] MEDS: nicotine 4 mg lozenge MUCOUS MEM ×3 (06:09→11:40)
[2024-03-14] MEDS: amlodipine 10 mg Tablet PO (09:19)
[2024-03-14] MEDS: hyDRALAzine 25 mg Tablet PO (09:19)
[2024-03-14] MEDS: hyDROXYzine 25 mg Capsule 50 MG PO (11:40)
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
[2024-03-14 14:00] VITALS: BP 131/87; PULSE 102; RESP 16; TEMP 37; O2SAT 100
[2024-03-14 14:57] VITALS: BP 131/87; PULSE 102; RESP 16; TEMP 37; O2SAT 100
== END 2024-03-14 15:25 | disposition home or self-care (01) | DRG 885 ==
LOC: ER 11:59 → NP 12:49
PROVIDERS: Family Medicine; Internal Medicine; Admitting Provider Psychiatry & Neurology Psychiatry; Emergency Provider Physician Assistant; Visit Provider Psychiatry & Neurology Psychiatry
DX: F23 Brief psychotic disorder (principal); F12.151 Cannabis abuse with psychotic disorder with hallucinations; Z68.1 Body mass index [BMI] 19.9 or less, adult; R45.850 Homicidal ideations; F41.1 Generalized anxiety disorder; F17.210 Nicotine dependence, cigarettes, uncomplicated; F10.10 Alcohol abuse, uncomplicated; R63.6 Underweight; I10 Essential (primary) hypertension; F31.9 Bipolar disorder, unspecified
CPT/HCPCS: 36415; 80053; 80306; 80307; 81001; 82533; 82607; 82746; 83540; 83550; 84439; 84443; 84481; 85025; 85045; 96372; 97150; 97165; 99285; J1630

== ENCOUNTER → 2024-04-06 11:10 | Outpatient (BNVA) | payer BC, SELFPAY | PROVIDERS: Visit Provider Nurse Practitioner | DX: Z79.899 Other long term (current) drug therapy (principal) | CPT/HCPCS: 80061; 83036 ==

== ENCOUNTER 2024-06-27 08:39 | Day surgery (SDC) | payer BC, MEDICAID, SELFPAY ==
[2024-06-27 08:52] VITALS: BP 121/90; PULSE 89; RESP 16; TEMP 36.9; O2SAT 97; BMI 24.2
[2024-06-27] MEDS: sodium chloride 0.9% 500 ML 15 ML IV (09:42)
--- NOTE | 2024-06-27 09:51 | W.PM.OPSUD ---
Surgery/Procedure H&P Update DATE OF PROCEDURE: June 27, 2024 DATE H&P PERFORMED: 06/01/24 H&P UPDATE INFORMATION: I have reviewed H&P completed within last 30 days, I have examined patient prior to procedure and No changes to prior documentation PLANNED PROCEDURE: Operation Date: 06/27/24 09:30 Proposed Procedures p EGD 13066, 26541, G0105, R15.9, R10.13, K21.9, K52.9(Not Applicable) - DO geovanni Mazariegos Colonoscopy(Not Applicable) - Lamont Foy DO
--- NOTE | 2024-06-27 09:53 | ANES.PREANE2 ---
Pre-Anesthetic Assessment Height/Weight: Height 1.68 m Weight 68.039 kg Temp Pulse Resp BP Pulse Ox O2 Del Method 98.4 F 89 16 121/90 97 Room Air 06/27/24 08:52 06/27/24 08:52 06/27/24 08:52 06/27/24 08:52 06/27/24 08:52 06/27/24 08:52 Preop Diagnosis: heartburn, screening Operation Date: 06/27/24 09:30 Proposed Procedures p EGD 69590, 16707, G0105, R15.9, R10.13, K21.9, K52.9(Not Applicable) - DO geovanni Mazariegos Colonoscopy(Not Applicable) - Lamont Foy DO Familial anesthetic complications: none Was Beta Rebecca taken within 24 hours: N/A Was Clonidine taken within 24 hours: N/A Last intake: Intake Last Liquid Date 06/26/24 Last Liquid Time 17:00 Last Solid Date 06/25/24 Last Solid Time 22:00 Social No alcohol and No tobacco (last meth use in states she could pass a drug screen today. discussed risks with meth and anesthesia, states she is truthful about last use in ) MJ smoker. H/O meth use. Exam alert and oriented x 3 Airway Submandibular: within normal limits Cervical ROM: within normal limits Mallampati: Class I Dentition: false History/ROS No significant history except as noted Pulmonary None reported CV/HEM Hypertension None reported Hepatic None reported GI Gastroesophageal Reflux Disease Metabolic Hyperlipidemia and None reported Musc/skel None reported Neuropsych None reported Anesthetic Plan ASA status: 3 Anesthesia: Anesthesia Evaluation and MAC Medications/Allergies Home Medications Medication Instructions Recorded Confirmed Last Taken Type amlodipine 10 mg tablet 10 mg PO .qnightly #90 tabs 04/19/24 06/25/24 06/25/24 Rx losartan 50 mg tablet 50 mg PO QAM #90 tabs 04/19/24 06/25/24 06/25/24 Rx pantoprazole 40 mg tablet,delayed 40 mg PO BID 6 weeks #84 tabs 06/01/24 06/25/24 06/25/24 Rx release (Protonix) paliperidone 6 mg tablet,extended 6 mg PO 2100 30 days #30 tabs 06/08/24 06/25/24 06/24/24 Rx release 24 hr trazodone 50 mg tablet 50 mg PO DAILY #30 tabs 06/08/24 06/25/24 06/25/24 Rx hydroxyzine pamoate 25 mg capsule 50 mg (2 x 25 mg) PO Q6H PRN 06/25/24 06/27/24 06/26/24 Rx Anxiety 30 days #180 caps olanzapine 5 mg tablet (Zyprexa) 2.5 mg PO BEDTIME 06/25/24 06/25/24 06/24/24 History Allergies Allergy/AdvReac Type Severity Reaction Status Date / Time No Known Allergies Allergy Verified 06/27/24 08:51 Current Medications Generic Name Dose Route Start Last Admin Trade Name Freq PRN Reason Stop Dose Admin Sodium Chloride 500 mls @ 15 mls/hr 06/27/24 08:39 06/27/24 09:42 Sodium Chloride 0.9% IV 06/28/24 08:38 15 mls/hr .Q24H PRN Administration COLONOSCOPY FLUIDS PFSH Anesthesia Medical History Tobacco use disorder, moderate, dependence Bipolar affective, manic, unspec Hypertension Cannabis use disorder Methamphetamine use disorder, moderate, in early remission On combination antipsychotic drug therapy Psychiatric care Surgical History History of hysterectomy Family History Grandfather Heart disease Grandmother Ovarian cancer Uterine cancer Mother Heart disease Hypertension Father Dementia Social History Smoking and tobacco/nicotine status: former use of tobacco/nicotine Alcohol intake: former Former alcohol use details: 2 months ago. intermittent use Substance/Drug Use: current Substance/Drug use frequency: daily Data Anesthesia Cardiac Studies: No Data to Display
[2024-06-27 10:28] VITALS: BP 129/88; PULSE 75; RESP 18; TEMP 36.6; O2SAT 95
--- NOTE | 2024-06-27 10:32 | ANE.PACU2 ---
Inpatient post-anesthesia follow up: Airway intact: Yes Vital signs: Temperature 97.9 F Pulse Rate 75 Respiratory Rate 18 Blood Pressure 129/88 Pulse Oximetry 95 Oxygen Delivery Me thod Room Air Oxygen Flow Rate Fraction of Inspir ed Oxygen Hydration adequate: Yes Nausea and vomiting: No Pain level: 1 Mental status: Baseline
[2024-06-27 10:41] VITALS: BP 131/91; PULSE 70; RESP 18; O2SAT 95
[2024-06-27 12:42] LABS: C.Diff PCR (Lab) POSITIVE (Negative)
== END 2024-06-27 11:06 | disposition home or self-care (01) ==
PROVIDERS: PCP Family Medicine; Visit Provider Surgery
PROC: 0DJ08ZZ Inspection of Upper Intestinal Tract, Via Natural or Artificial Opening Endoscopic (ICD-10-PCS; principal; 2024-06-27 09:30)
PROC: 0DJD8ZZ Inspection of Lower Intestinal Tract, Via Natural or Artificial Opening Endoscopic (ICD-10-PCS; CPT 45378; 2024-06-27 09:30)
DX: R15.9 Full incontinence of feces (principal); R10.13 Epigastric pain; K21.9 Gastro-esophageal reflux disease without esophagitis; K52.9 Noninfective gastroenteritis and colitis, unspecified; D12.5 Benign neoplasm of sigmoid colon; I10 Essential (primary) hypertension; E78.5 Hyperlipidemia, unspecified; Z87.891 Personal history of nicotine dependence; K44.9 Diaphragmatic hernia without obstruction or gangrene; K29.80 Duodenitis without bleeding
CPT/HCPCS: 43239; 45380; 45385; 82274; 83630; 87045; 87177; 87209; 87427; 87449; 87493; 88305; J2704; J7040

== ENCOUNTER 2024-07-13 15:16 | Outpatient (CLI) | payer BC, MEDICAID, SELFPAY ==
[2024-07-13 19:03] LABS: C.Diff PCR (Lab) NEGATIVE (Negative)
== END 2024-07-13 15:17 | disposition home or self-care (01) ==
LOC: LAB 15:20
PROVIDERS: PCP Family Medicine; Visit Provider Surgery
DX: K52.9 Noninfective gastroenteritis and colitis, unspecified (principal); R10.13 Epigastric pain
CPT/HCPCS: 87493

== ENCOUNTER 2024-07-16 13:25 | Outpatient (CLI) | payer BC, MEDICAID, SELFPAY ==
--- NOTE | 2024-07-16 13:30 | MM_ITS ---
WS: [id number] BILATERAL 3D TOMOSYNTHESIS DIGITAL DIAGNOSTIC MAMMOGRAPHY WITH CAD CLINICAL INFORMATION: HISTORY: Bilateral milky discharge COMPARISON: 2012 TECHNIQUE: Bilateral CC, MLO, and ML views. FINDINGS: The breasts are composed of heterogeneous fibroglandular density, which can limit the detection of small underlying mass lesions. No visualized abnormalities in the subareolar regions bilaterally on the mammogram. Eggshell calcification RIGHT breast. Bilateral ultrasound is pending. ULTRASOUND BREAST BILATERAL TECHNIQUE: Ultrasound bilateral breast focused area of concern. CLINICAL INFORMATION: FINDINGS: No suspicious abnormalities in the subareolar regions bilaterally. No cystic or solid lesions to target for biopsy. RIGHT BREAST: Ultrasound subareolar RIGHT breast. No suspicious abnormalities. Incidental ductal ectasia LEFT BREAST: Ultrasound subareolar LEFT breast. No suspicious abnormalities. Incidental ductal ectasia MM/MM diag tomosynthesis [id number] IMPRESSION: DENSITY: The breasts are heterogeneously dense, which may obscure small masses. BI-RADS: 2 - Benign FOLLOW UP: 1 Year Follow-up Recommend return to annual screening mammography.
== END 2024-07-16 13:26 | disposition home or self-care (01) ==
LOC: RAD 13:26
PROVIDERS: PCP Family Medicine; Visit Provider Family Medicine
DX: N64.52 Nipple discharge (principal); R92.323 Mammographic fibroglandular density, bilateral breasts; R92.333 Mammographic heterogeneous density, bilateral breasts; R92.1 Mammographic calcification found on diagnostic imaging of breast; N60.42 Mammary duct ectasia of left breast; N60.41 Mammary duct ectasia of right breast
CPT/HCPCS: 76642; 77062; G0279

== ENCOUNTER 2024-08-09 07:55 | Outpatient (CLI) | payer BC, MEDICAID, SELFPAY ==
--- NOTE | 2024-08-09 08:00 | US_ITS ---
WS: [id number] RIGHT UPPER QUADRANT ULTRASOUND HISTORY: epigastric pain COMPARISON: 08/15/2015 Liver: 15.7 cm in length. Normal size liver and echogenicity. No bile duct dilatation or mass. Portal Vein: Normal hepatopetal flow with monophasic waveform. Gallbladder: Normally distended gallbladder with no stones or wall thickening. CBD: 0.5 cm Pancreas: Normal size and echogenicity. Right kidney: 9.9 cm in length. Normal size and echogenicity. No hydronephrosis or mass. Aorta and IVC: Unremarkable abdominal aorta and IVC. No ascites. US/US gall bladder [id number] IMPRESSION: Normal right upper quadrant ultrasound.
== END 2024-08-09 07:56 | disposition home or self-care (01) ==
PROVIDERS: PCP Family Medicine; Visit Provider Surgery
DX: R10.13 Epigastric pain (principal)
CPT/HCPCS: 76705

== ENCOUNTER 2024-08-10 08:21 | Outpatient (CLI) | payer BC, MEDICAID, SELFPAY ==
--- NOTE | 2024-08-10 10:00 | NM_ITS ---
WS: [id number] NUCLEAR MEDICINE HIDA SCAN CLINICAL INFORMATION: epigastric pain TECHNIQUE: Following intravenous administration of 8.1 mCi of technetium 99m mebrofenin, images of the abdomen were obtained over the course of 60 minutes. Next, gallbladder ejection fraction was determined by obtaining preprandial and one-hour postprandial images of the gallbladder following oral ingestion of Ensure. FINDINGS: Normal hepatic uptake at 5 minutes. Normal hepatic excretion. Gallbladder is visualized by 15 minutes. No evidence of acute cholecystitis. Normal common bile duct and small bowel activity. Gallbladder ejection fraction 38% at the lower end of the range but within normal limits. Recommend correlation for chronic gallbladder dysfunction. NM/NM hepatobiliary w phar* [id number] IMPRESSION: 1. No evidence of acute cholecystitis. 2. Gallbladder ejection fraction at the lower end of the range measuring 38% b ut within normal limits. Recommend correlation for chronic gallbladder dysfunct ion.
== END 2024-08-10 08:22 | disposition home or self-care (01) ==
LOC: RAD 08:21
PROVIDERS: PCP Family Medicine; Visit Provider Surgery
DX: R10.13 Epigastric pain (principal); R93.3 Abnormal findings on diagnostic imaging of other parts of digestive tract
CPT/HCPCS: 78227; A9537

== ENCOUNTER 2025-03-19 15:24 | Emergency (ER) | payer BC, MEDICAID, SELFPAY ==
[2025-03-19 15:30] VITALS: BP 136/92; PULSE 70; RESP 18; TEMP 36.9; O2SAT 96
--- NOTE | 2025-03-19 15:39 | XRR_ITS ---
PROCEDURE INFORMATION: Exam: XR Chest Exam date and time: 03/19/2025 3:42 PM Age: 55 years old Clinical indication: Pain; Angina pectoris; Additional info: Chest pain TECHNIQUE: Imaging protocol: Radiologic exam of the chest. Views: 1 view. COMPARISON: CT kidney stone [id number] 04/29/2019 10:38 PM FINDINGS: Lungs: Subsegmental atelectasis is present in the lung bases. No focal consolidation. Pleural spaces: Unremarkable. No pleural effusion. No pneumothorax. Heart/Mediastinum: Unremarkable. No cardiomegaly. Bones/joints: Unremarkable. XR/XR chest 1V portable [id number] IMPRESSION: Subsegmental atelectasis in the lung bases. Otherwise unremarkable.
--- NOTE | 2025-03-19 15:39 | ECG_ITS ---
[email or web address] Date: 2025-03-19 Pat Name: Maribell Epps Department: Room: Gender: Female Health Care Attorney: : 1970 Requested By: Adriana Grimaldo Order Number: [id number] Tisha MD: Salvatore Mata M.D. Measurements Intervals [place] Rate: 54 P: 40 NV: 135 QRS: 33 QRSD: 93 T: 38 QT: 445 QTc: 424 Interpretive Statements SINUS BRADYCARDIA WITH SINUS ARRHYTHMIA POSSIBLE RIGHT VENTRICULAR CONDUCTION DELAY [RSR (QR) IN V1/V2] No previous ECG available for comparison Electronically Signed On 03-20-2025 16:53:45 CDT by Salvatore Mata M.D. [email or web address]
--- NOTE | 2025-03-19 15:51 | W.ED.CHESTPA ---
HPI - Chest Pain General: Chief Complaint: Chest Pain Stated Complaint: cp, hurts to breathe in Time Seen by Provider: 03/19/25 15:39 History of Present Illness: Patient is 55-year-old female status post hysterectomy, presents to ED with right sided chest pain. She complains of difficulty with taking a deep breath. This occurred at 2 AM, and woke her up from her sleep. No history of CAD. Does not take aspirin. She has not had any palpitations. No diaphoresis, nausea, or vomiting. She describes this as a pressure on the right side of her chest, and right upper abdomen. No alcohol intake history. Non-smoker. Family history: Father heart disease in 70s, mother heart disease in 70s. Father is , mother is still alive in her 80s. Onset (ago): hour(s) (14) Timing of current episode: episodic Prior episodes: No Pain location: right chest Severity: moderate Quality: heaviness Associated symptoms: Reports dyspnea; Deny abdominal pain, fever(s), nausea, palpitations or vomiting Related Data Previous Rx's ?Medication ?Instructions ?Recorded losartan 50 mg tablet 50 mg PO QAM #90 tabs 09/10/24 pantoprazole 40 mg tablet,delayed 40 mg PO QAM #90 tabs 09/10/24 release (Protonix) amlodipine 10 mg tablet 10 mg PO .qnightly #90 tabs 10/31/24 hydroxyzine pamoate 25 mg capsule 50 mg (2 x 25 mg) PO Q6H PRN 02/26/25 Anxiety 30 days #180 caps paliperidone 9 mg tablet,extended 9 mg PO DAILY #30 tabs 02/26/25 release 24 hr (Invega) trazodone 100 mg tablet 100 mg PO DAILY #30 tabs 02/27/25 fluoxetine 40 mg capsule 40 mg PO DAILY #30 caps 03/11/25 ketorolac 10 mg tablet 10 mg PO Q8H PRN pain 5 days #14 03/19/25 tabs methocarbamol 500 mg tablet 500 mg PO Q8H PRN muscle spasm #30 03/19/25 tabs Allergies Allergy/AdvReac Type Severity Reaction Status Date / Time No Known Allergies Allergy Verified 03/14/25 10:40 Review of Systems General: Reports: 10 or more systems reviewed and unremarkable except in HPI and below Const: Denies: fever(s) or chills Eyes: Denies: change in vision or blurry vision ENMT: Denies: throat pain, nasal discharge or nasal obstruction Card: Reports: chest pain; Denies: palpitations, irregular heart rhythm or lightheadedness Resp: Reports: dyspnea; Denies: non-productive cough or wheezing GI: Denies: abdominal pain, nausea or vomiting : Denies: flank pain or difficulty voiding Musc: Denies: neck pain or back pain Neuro: Denies: headache(s) or numbness in extremities Psych: Denies: anxiety or depression PFSH ED PFSH: Medical History (Updated 03/19/25 @ 21:03 by YURIY Webber) Bilateral shoulder pain Bilateral knee pain Fatigue Anxiety Tobacco use disorder, moderate, dependence Bipolar affective, manic, unspec Hypertension Cannabis use disorder Methamphetamine use disorder, moderate, in early remission On combination antipsychotic drug therapy Psychiatric care Surgical History History of hysterectomy Family History Grandfather Heart disease Grandmother Ovarian cancer Uterine cancer Mother Heart disease Hypertension Father Dementia Social History Smoking and tobacco/nicotine status: former use of tobacco/nicotine Alcohol intake: former Former alcohol use details: 2 months ago. intermittent use Substance/Drug Use: current Substance/Drug use frequency: daily Physical Exam Const: COMMON NORMALS: no acute distress, average body habitus and patient oriented x3 HENMT: COMMON NORMALS: normocephalic, atraumatic and hearing grossly normal bilaterally HEAD & SCALP: normocephalic and atraumatic FACE & SINUS: normal facial exam Eye: COMMON NORMALS: Equal, round and reactive pupils present, EOMs intact bilaterally and conjunctivae normal CONJUNCTIVA: Yes conjunctivae normal PUPIL: Yes Equal, round and reactive pupils present Neck/C-Spine: COMMON NORMALS: full ROM, no lymphadenopathy and supple Lymph: LYMPHATIC: no lymphadenopathy noted Chest: COMMONS NORMALS: normal inspection of the chest and normal palpation of entire chest wall Resp: COMMON NORMALS: normal respiratory effort, No retractions and clear to auscultation bilaterally (posterior) EFFORT & INSPECTION: Yes able to speak in complete sentences and Yes symmetric chest movement AUSCULTATION: clear to auscultation bilaterally (posterior) Cardio: COMMON NORMALS: regular rate, regular rhythm and No murmurs present (Cardio) RATE: regular rate RHYTHM: regular rhythm GI: COMMON NORMALS: Normal to inspection, nondistended, normoactive bowel sounds present, Soft to palpation and No hepatosplenomegaly present PALPATION: Yes Soft to palpation, Yes Tenderness to palpation present (GI) Details: RUQ, No Guarding due to palpation present (GI) and Yes No hepatosplenomegaly present : COMMON NORMALS: Yes no CVA tenderness BLADDER/KIDNEY EXAM: Yes no CVA tenderness Back/Pelvis: COMMON NORMALS: no CVA tenderness Extremity: COMMON NORMALS: normal to inspection, full ROM, capillary refill normal and no pedal edema Neuro: COMMON NORMALS: patient oriented x3 and CN's II-XII intact bilaterally Course Reevaluation(s): Reevaluation #1: Updated patient, chest pain improved Vital Signs: Vital signs: Vital Signs Temperature 98.5 F 03/19/25 15:30 Pulse Rate 58 L 03/19/25 18:19 Respiratory Rate 16 03/19/25 18:19 Blood Pressure 138/101 03/19/25 18:19 Pulse Oximetry 97 03/19/25 18:19 Oxygen Delivery Me thod Room Air 03/19/25 18:19 MDM - Chest Pain Medical Decision Making Patient is a 55-year-old female with minimal risk factors, right sided chest pain since early this morning, and right upper quadrant pain. Will rule out from a cardiac standpoint, and check a lipase. She does have intact gallbladder. No relationship to food intake. Last intake was approximately 5 PM, spaghetti's, and ravioli's for dinner. No nausea, or vomiting. Non-smoker. Late paternal history of heart disease. [place] PE score is 0, however we will check a D-dimer with her having right sided chest discomfort. Troponin is 8 initially, and since patient has had chest pain since 2 AM, this is enough for ischemic work up. Suspect cholecystitis. Suspect right basilar infiltrate. Lipase and procalcitonin is pending. WBC just over 12. No recent fevers. D-dimer is minimally elevated at 1.09, will order CTA chest. Medical Records I reviewed the patient's medical records. Lab Data I reviewed the patient's lab results. 03/19/25 15:51 03/19/25 15:51 Radiology Impressions Chest X-Ray 03/19/25 15:39 IMPRESSION: Subsegmental atelectasis in the lung bases. Otherwise unremarkable. Chest CTA 03/19/25 16:46 IMPRESSION: 1. No pulmonary emboli. 2. No focal consolidations. Laboratory Results WBC 12.01 10^3/uL (3.29-11.43) H 03/19/25 15:51 RBC 4.40 10^6/uL (3.85-5.65) 03/19/25 15:51 Hgb 12.70 g/dL (11.27-16.99) 03/19/25 15:51 Hct 38.2 % (36-47) 03/19/25 15:51 MCV 86.8 fl (85-98) 03/19/25 15:51 MCH 28.9 pg (27-33) 03/19/25 15:51 MCHC 33.2 g/dL (30-55) 03/19/25 15:51 RDW 13.2 % (12.1-15.1) 03/19/25 15:51 Plt Count 310 10^3/cmm (157-399) 03/19/25 15:51 MPV 9.0 fL (7.4-10.4) 03/19/25 15:51 Neut % (Auto) 68.3 % 03/19/25 15:51 Lymph % (Auto) 19.7 % 03/19/25 15:51 [place] % (Auto) 7.7 % 03/19/25 15:51 Eos % (Auto) 3.0 % 03/19/25 15:51 Baso % (Auto) 0.7 % 03/19/25 15:51 Neut # (Auto) 8.20 10^3/uL (1.8-7.7) H 03/19/25 15:51 Lymph # (Auto) 2.4 10^3/uL (0.8-4.8) 03/19/25 15:51 [place] # (Auto) 0.9 10^3/uL (0.2-0.9) 03/19/25 15:51 Eos # (Auto) 0.4 10^3/uL (0.0-0.8) 03/19/25 15:51 Baso # (Auto) 0.1 10^3/uL (0.0-0.1) 03/19/25 15:51 Nucleated RBC % (auto) 0 % 03/19/25 15:51 Nucleated RBCs # 0.0 /100WBC 03/19/25 15:51 D-Dimer 1.02 ug/mLFEU (0-0.59) H 03/19/25 15:51 Sodium 137 mmol/L (136-145) 03/19/25 15:51 Potassium 4.1 mmol/L (3.5-5.1) 03/19/25 15:51 Chloride 101 mmol/L (98-107) 03/19/25 15:51 Carbon Dioxide 21 mmol/L (22-29) L 03/19/25 15:51 Anion Gap 19.1 (5-19) H 03/19/25 15:51 BUN 22 mg/dL (6-20) H 03/19/25 15:51 Creatinine 0.9 mg/dL (0.5-0.9) 03/19/25 15:51 GFR Calculation 65.5 mL/min (90-130) L 03/19/25 15:51 Glucose 110 mg/dL (65-115) 03/19/25 15:51 Calculated Osmolality 288 mOsm/kg (285-295) 03/19/25 15:51 Calcium 9.5 mg/dL (8.5-10.5) 03/19/25 15:51 Total Bilirubin 0.2 mg/dL (0.15-1.2) 03/19/25 15:51 AST 10 U/L (0-32) 03/19/25 15:51 ALT 8 U/L (0-33) 03/19/25 15:51 Alkaline Phosphatase 102 U/L (35-105) 03/19/25 15:51 Troponin T Baseline 8 ng/L (0-10) 03/19/25 15:51 NT-Pro-B Natriuret Pep < 36 pg/mL (0-125) 03/19/25 15:51 Total Protein 6.8 g/dL (6.6-8.7) 03/19/25 15:51 Albumin 4.2 g/dL (3.5-5.2) 03/19/25 15:51 Globulin 2.6 g/dL (1.3-4.6) 03/19/25 15:51 Lipase 42 U/L (13-60) 03/19/25 15:51 Procalcitonin 0.03 ng/mL (0-0.5) 03/19/25 15:51 XR interpretation done by ED provider, pending radiology final review EKG Data EKG 1: Interpretation: Normal sinus rhythm, normal axis Discharge Plan Discharge Patient Disposition: Home Clinical Impression: Pleurisy Condition: Stable Prescriptions: New ketorolac 10 mg tablet 10 mg PO Q8H PRN (Reason: pain) 5 Days Qty: 14 0RF methocarbamol 500 mg tablet 500 mg PO Q8H PRN (Reason: muscle spasm) Qty: 30 0RF No Action pantoprazole [Protonix] 40 mg tablet,delayed release (DR/EC) 40 mg PO QAM Qty: 90 1RF losartan 50 mg tablet 50 mg PO QAM Qty: 90 1RF amlodipine 10 mg tablet 10 mg PO .qnightly Qty: 90 1RF hydroxyzine pamoate 25 mg capsule 50 mg PO Q6H PRN (Reason: Anxiety) 30 Days Qty: 180 1RF paliperidone [Invega] 9 mg tablet extended release 24hr 9 mg PO DAILY Qty: 30 1RF trazodone 100 mg tablet 100 mg PO DAILY Qty: 30 1RF fluoxetine 40 mg capsule 40 mg PO DAILY Qty: 30 1RF Discharge Orders: Discharge ED (Routine); Ordered 03/19/25 Ordered By: Adriana Grimaldo Referrals: Master Almendarez MD [Primary Care Provider, Family Practice] Discharge Diet: Usual diet Patient Instructions: Pleurisy (ED), Patient Portal & [facility] Instructions Activity Restrictions/Additional Instructions: - Follow-up with your doctor to reevaluate gallbladder as partial cause. - At this time you appear to have association of pleurisy. Make sure you are deep breathing. Ketorolac/Toradol, Robaxin/methocarbamol has been sent to your pharmacy to help with pain and deep breathing - Return to ED if this happens again Print Language: [place] Citizen Coding Level of Care Code ED Hunting Sales Associate for Chg Fwd Heart Score HEART Score Components History: Slightly Suspicous EKG: Normal Age: 45-64 yrs Risk Factors: No Risk Factors Known Troponin: Baseline Trop <16 ng/L (8) HEART Score RESULT HEART Score: 1
[2025-03-19 16:00] LABS: Hematocrit 38.2 % (36-47); Hemoglobin 12.70 g/dL (11.27-16.99); Mean Corpuscular HGB Conc 33.2 g/dL (30-55); Mean Corpuscular Hemoglobin 28.9 pg (27-33); Mean Corpuscular Volume 86.8 fl (85-98); Nucleated Red Blood Cells % 0 %; Platelet Count 310 10^3/cmm (157-399); Red Blood Count 4.40 10^6/uL (3.85-5.65); White Blood Count 12.01 10^3/uL (3.29-11.43)
--- OUTSIDE RECORDS SUMMARY | 2025-03-19 16:15 | XMS_ITS | Clinical Summary ---
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 Gender Identity Not on file Sexual Orientation Not on file Plan of Treatment Health Maintenance Due Date Last Done Comments DTAP/TDAP/TD VACCINES (1 - Tdap) 01/19/1991 HEPATITIS B VACCINES (1 of 3 - 19+ 3-dose series) 01/04 HPV/Cotest (21-29) 01/19/1993 CERVICAL CANCER SCREENING 01/19/2002 HPV/Cotest (30-65) 01/19/2002 PAP SMEAR 01/19/2002 BREAST CANCER SCREENING 2012 COLORECTAL SCREENING 01/19/2017 Colorectal Cancer Screening 01/19/2017 FIT-DNA Q 3 years 01/19/2017 FIT/FOBT Q 1 year 01/19/2017 Flex Sig/CT Colonography Q 5 years 01/19/2017 ZOSTER VACCINE (1 of 2) 01/19/2022 INFLUENZA VACCINE (#1) 2025
--- OUTSIDE RECORDS SUMMARY | 2025-03-19 16:15 | XMS_ITS | Encounter Summary ---
Author Organization [id number] Address [address] [place] [address] Care Team Providers Care Fiscal Services Director Name Role Phone Unavailable Primary Care Provider Unavailabl e Encounter Details Date Type Department Care Team (Latest Contact Info) Description 12/29/2001 Outpatient Historical [facility] Tanner Sanchez MD [address] [place] [id number] HEADACHE (Primary Dx); BRIEF DEPRESSIVE REACT; TM JOINT DISORDER, UNSPEC; LUMBAGO Social History Tobacco Use Types Packs/Day Years Used Date Smoking Tobacco: Never Assessed Comments Unknown Sex and Gender Information Value Date Recorded Sex Assigned at Not on file 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
--- OUTSIDE RECORDS SUMMARY | 2025-03-19 16:15 | XMS_ITS | Encounter Summary ---
Author Organization [facility] Address [address] [place] [address] Care Team Providers Care Learning Center Instructor Name Role Phone Unavailable Primary Care Provider Unavailabl e Encounter Details Date Type Department Care Team (Latest Contact Info) Description 10/05/2002 Outpatient Historical [facility] [address] [place] [phone] Chris Ewing II, MD [address] [phone] OTHER VIRAL DIS-ANTEPARTUM (Primary Dx); Varicella uncomplicated; ABNL FINDINGS ON SCREEN; TOBACCO USE DISORDER Social History Tobacco Use Types Packs/Day Years Used Date Smoking Tobacco: Never Assessed Comments Unknown Sex and Gender Information Value Date Recorded Sex Assigned at Not on file 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
--- OUTSIDE RECORDS SUMMARY | 2025-03-19 16:15 | XMS_ITS | Encounter Summary ---
Author Organization [facility] Address [address] [place] [address] Care Team Providers Care Produce Wrapper Name Role Phone Unavailable Primary Care Provider Unavailabl e Encounter Details Date Type Department Care Team (Latest Contact Info) Description 08/07/2002 Outpatient Historical [facility] Maternal and Medicine-[facility] [address] [place] [phone] Chris Ewing II, MD [address] [phone] OTHER VIRAL DIS-ANTEPARTUM (Primary Dx); Varicella uncomplicated; ABNL FINDINGS ON SCREEN; TOBACCO USE DISORDER Social History Tobacco Use Types Packs/Day Years Used Date Smoking Tobacco: Never Assessed Comments Unknown Sex and Gender Information Value Date Recorded Sex Assigned at Not on file 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
--- OUTSIDE RECORDS SUMMARY | 2025-03-19 16:15 | XMS_ITS | Encounter Summary ---
Author Organization [facility] Address [address] [place] [address] Care Team Providers Care Housing Relocation Name Role Phone Unavailable Primary Care Provider Unavailabl e Encounter Details Date Type Department Care Team (Latest Contact Info) Description 07/10/2002 Outpatient Historical [facility] [address] [place] [id number] Chris Ewing II, MD [address] [phone] OTHER VIRAL DIS-ANTEPARTUM (Primary Dx); Varicella uncomplicated; ABNL FINDINGS ON SCREEN; TOBACCO USE DISORDER Social History Tobacco Use Types Packs/Day Years Used Date Smoking Tobacco: Never Assessed Comments Unknown Sex and Gender Information Value Date Recorded Sex Assigned at Not on file Legal Sex Female 4:58 AM [employer] Gender Identity Not on file Sexual Orientation Not on file documented as of this encounter Plan of Treatment Not on file documented as of this encounter Visit Diagnoses Diagnosis Other maternal viral disease, antepartum- Primary Varicella uncomplicated Varicella without mention of complication Abnormal findings on screening Tobacco use disorder documented in this encounter
[2025-03-19 16:22] LABS: Troponin(5th) Baseline 8 ng/L (0-10)
--- NOTE | 2025-03-19 16:46 | CTR_ITS ---
PROCEDURE INFORMATION: Exam: CTA Chest With Contrast Exam date and time: 03/19/2025 6:47 PM Age: 55 years old Clinical indication: Other: Elevated ddimer and cp; Patient reports she has had chest pain since last night and reports it woke her up from her sleep. ; Additional info: Elevated d dimer, chest pain TECHNIQUE: Imaging protocol: Computed tomographic angiography of the chest with contrast. Exam focused on the arteries. 3D rendering (Not supervised by radiologist): MIP and/or 3D reconstructed images were created by the technologist. Radiation optimization: All CT scans at this facility use at least one of these dose optimization techniques: automated exposure control; mA and/or kV adjustment per patient size (includes targeted exams where dose is matched to clinical indication); or iterative reconstruction. Contrast material: [id number]; Contrast volume: 100 ml; Contrast route: INTRAVENOUS (IV); COMPARISON: CR XR chest 1V portable [id number] 03/19/2025 3:42 PM RADIATION DOSE METRICS: Total DLP (mGy-cm): 350.58 FINDINGS: Pulmonary arteries: No pulmonary emboli. Aorta: Unremarkable. No aortic aneurysm. No aortic dissection. Lungs: No focal consolidations. Pleural spaces: Unremarkable. No pneumothorax. No pleural effusion. Heart: Unremarkable. No cardiomegaly. No pericardial effusion. Lymph nodes: Unremarkable. No enlarged lymph nodes. Bones/joints: Unremarkable. No acute fracture. Soft tissues: Unremarkable. CT/CT angio chest PE protcl [id number] IMPRESSION: 1. No pulmonary emboli. 2. No focal consolidations.
[2025-03-19 17:08] LABS: Alanine Aminotransferase 8 U/L (0-33); Albumin Level 4.2 g/dL (3.5-5.2); Alkaline Phosphatase 102 U/L (35-105); Anion Gap 19.1 (5-19); Aspartate Amino Transferase 10 U/L (0-32); Blood Urea Nitrogen 22 mg/dL (6-20); Calcium 9.5 mg/dL (8.5-10.5); Carbon Dioxide 21 mmol/L (22-29); Chloride 101 mmol/L (98-107); Creatinine Clr Calc Pharmacy 76.0106; Globulin 2.6 g/dL (1.3-4.6); Glucose 110 mg/dL (65-115); Lipase 42 U/L (13-60); NT Pro B Type Natriuretic Pept < 36 pg/mL (0-125); Osmolality Calculated 288 mOsm/kg (285-295); Potassium 4.1 mmol/L (3.5-5.1); Procalcitonin 0.03 ng/mL (0-0.5); Sodium 137 mmol/L (136-145); Total Protein 6.8 g/dL (6.6-8.7)
[2025-03-19 18:19] VITALS: BP 138/101; PULSE 58; RESP 16; O2SAT 97
[2025-03-19] MEDS: iohexol 350 mg/mL 500 mL Btl (per mL) IV (18:54)
[2025-03-19 21:19] VITALS: BP 150/108; PULSE 63; RESP 16; O2SAT 95
== END 2025-03-19 21:20 | disposition home or self-care (01) ==
PROVIDERS: Emergency Provider Physician Assistant; PCP Family Medicine
DX: R09.1 Pleurisy (principal); Z87.891 Personal history of nicotine dependence; I10 Essential (primary) hypertension
CPT/HCPCS: 36415; 71045; 71275; 80053; 83690; 83880; 84145; 84484; 85025; 85378; 93005; 96374; 99285; J1885; J9999

== ENCOUNTER 2025-04-25 14:30 | Outpatient (CLI) | payer BC, MEDICAID, SELFPAY | END 2025-04-25 14:31 | disposition home or self-care (01) | LOC: LAB 14:31 | PROVIDERS: PCP Family Medicine; Visit Provider Nurse Practitioner | DX: Z79.899 Other long term (current) drug therapy (principal) | CPT/HCPCS: 36415; 80061; 83036 ==